=== PATIENT | female | born 1990 | race Caucasian/White ===

== ENCOUNTER 2019-04-02 08:14 | Inpatient (IN) | payer BC ==
[2019-04-02] MEDS ORDERED: Ondansetron 4 MG/2 ML SDV IVPUSH PRN (19:29)
[2019-04-02] MEDS ORDERED: Nalbuphine 10 MG/1 ML Vial IVPUSH PRN (19:29)
[2019-04-02] MEDS ORDERED: Sodium Chloride 0.9% 10 ML Syringe FLUSH PRN (19:29)
[2019-04-02] MEDS ORDERED: Lidocaine 1% 50 ML MDV INJECT ONE (19:29)
--- NOTE | 2019-04-02 19:56 | PCM.LDHP ---
L&D History of Present Illness - General Date of Service: 04/02/19 Admit Problem/Dx: Patient Status Order with Admit Dx/Problem 04/02/19 19:30 Patient Status [ADT] Routine Admission Diagnosis/Problem Admission Diagnosis/Problem 39 weeks gestation of Source of Information: Patient History Limitations: Reports: No Limitations - History of Present Illness Introduction:: 28year old with mild preeclampsia, admitted for induction of labor. WE first noticed increased bp at the 37 week visit. Her bp has been running in the 140's/80's, but urine protein to creatinine ratio has been >0.3. PIH labs have been wnl, except slight decrease in platelets at last visit. WE have been doing BPP and they have been normal. EFW on last ultrasound on 03/31/19 was 7 lb 9 oz with ALEC 10.8 on 03/31/19. GBS is negative and 1 hour glucola wnl. Her blood type is Apos. Infection testing has been negative except for Bacterial vaginosis. Her labs did show a significant hypokalemia and we have started her on oral liquid potassium supplement since she is not able to swallow pills. She does also have hypothyroidism and is on levothyroxine. - Related Data Allergies/Adverse Reactions: Allergies Allergy/AdvReac Type Severity Reaction Status Date / Time Penicillins Allergy Hives Verified 04/02/19 19:57 seafood Allergy Other Uncoded 04/02/19 19:57 Home Medications: Home Meds Levothyroxine [Synthroid] 50 mcg PO ACBREAKFAST 04/02/19 [History] Potassium Chloride 30 ml PO BID 04/02/19 [History] Social & Family History - Tobacco Use Smoking Status *Q: Never Smoker Tobacco Use Within Last Twelve Months: No - Alcohol Use Alcohol Use History: No Alcohol Use in Last Twelve Months: No - Recreational Drug Use Recreational Drug Use: No Drug Use in Last 12 Months: No - Living Situation & Occupation Living situation: Reports: Occupation: Employed H&P Review of Systems - Review of Systems: Review Of Systems: See Below General: Reports: No Symptoms HEENT: Reports: No Symptoms Pulmonary: Reports: No Symptoms Cardiovascular: Reports: Edema Gastrointestinal: Reports: No Symptoms Genitourinary: Reports: No Symptoms Musculoskeletal: Reports: No Symptoms Skin: Reports: No Symptoms Psychiatric: Reports: No Symptoms Neurological: Reports: No Symptoms Hematologic/Lymphatic: Reports: No Symptoms Immunologic: Reports: No Symptoms L&D Exam - Exam Exam: See Below - OB Specific Contraction Frequency (min): occasional contraction Contraction Intensity: Patient does not feel the contraction Movement: Active Heart Tones: Present Heart Tones per Min: 130 Heart Rate (FHR) Variability: Moderate (6-25 bmp) Presentation: Vertex Estimated Weight: 7 lb 9 oz - Lou Score Lou Score Cervix Position: Anterior Lou Score Consistency: Firm Lou Score Effacement: 0-30% Lou Score Dilation: Closed Lou Score 's Station: -3 Lou Score Total: 2 - Exam General: Alert, Oriented HEENT: Mucosa Moist & [place] Neck: Supple, Trachea Midline Lungs: Normal Respiratory Effort Cardiovascular: Regular Rate, Regular Rhythm GI/Abdominal Exam: Normal Bowel Sounds Rectal Exam: Deferred Genitourinary: Normal external exam Back Exam: Normal Inspection, Full Range of Motion Extremities: Pedal Edema Skin: Warm, Dry, Intact Neurological: Cranial Nerves Intact Psychiatric: Alert, Normal Affect, Normal Mood - Problem List (1) Pre-eclampsia affecting , antepartum SNOMED Code(s): 955196891, 527922142 ICD Code: O14.90 - UNSPECIFIED PRE-ECLAMPSIA, UNSPECIFIED TRIMESTER Status : Acute Current Visit: Yes (2) 39 weeks gestation of SNOMED Code(s): 80053798 ICD Code: Z3A.39 - 39 WEEKS GESTATION OF Status: Acute Current Visit: Yes (3) Hypokalemia SNOMED Code(s): 93816745 ICD Code: E87.6 - HYPOKALEMIA Status: Acute Current Visit: Yes (4) Hypothyroidism SNOMED Code(s): 20086899 ICD Code: E03.9 - HYPOTHYROIDISM, UNSPECIFIED Status: Acute Current Visit : Yes Qualifiers: Hypothyroidism type: acquired Qualified Code(s): E03.9 - Hypothyroidism, unspecified Problem List Initiated/Reviewed/Updated: Yes Orders Last 24hrs: Active Orders 24 hr Category Date Time Status Patient Status [ADT] Routine ADT 04/02/19 19:30 Ordered Activity as Tolerated [RC] PFP Care 04/02/19 19:30 Ordered Communication Order [RC] ASDIRECTED Care 04/02/19 19:30 Ordered Heart Tones [RC] ASDIRECTED Care 04/02/19 19:32 Ordered Non Stress Test [RC] PER UNIT ROUTINE Care 04/02/19 19:30 Ordered Notify Provider [RC] PFP Care 04/02/19 19:30 Ordered Notify Provider [RC] PRN Care 04/02/19 19:30 Ordered Peripheral IV Care [RC] . DIRECTED Care 04/02/19 19:32 Ordered Vital Signs [RC] PER UNIT ROUTINE Care 04/02/19 19:30 Ordered Regular Diet [DIET] Diet 04/02/19 Dinner Ordered ALANINE AMINOTRANSFERASE,ALT [CHEM] Stat Lab 04/02/19 19:39 Ordered ASPARTATE AMNIOTRANSFERASE,AST [CHEM] Stat Lab 04/02/19 19:39 Ordered BLOOD UREA NITROGEN,BUN [CHEM] Stat Lab 04/02/19 19:39 Ordered CBC WITH AUTO DIFF [HEME] Stat Lab 04/02/19 19:39 Ordered CREATININE W/GFR [CHEM] Stat Lab 04/02/19 19:39 Ordered LACTATE DEHYDROGENASE,LDH [CHEM] Stat Lab 04/02/19 19:39 Ordered PROTEIN/CREATININE RATIO,URINE [URCHEM] Routine Lab 04/02/19 19:43 Ordered RAPID PLASMA REAGIN,RPR [CHEM] Routine Lab 04/02/19 19:30 Ordered TYPE AND SCREEN [BBK] Stat Lab 04/02/19 19:29 Ordered URIC ACID [CHEM] Stat Lab 04/02/19 19:39 Ordered Lactated Ringers [Ringers, Lactated] 1,000 ml Med 04/02/19 19:30 Ordered IV ASDIRECTED Lidocaine 1% [Xylocaine 1%] Med 04/02/19 19:29 Once 20 ml INJECT ONETIME ONE Nalbuphine [Nubain] Med 04/02/19 19:29 Ordered 10 mg IVPUSH Q2H PRN Ondansetron [Zofran] Med 04/02/19 19:29 Ordered 4 mg IVPUSH Q4H PRN Sodium Chloride 0.9% [Saline Flush] Med 04/02/19 19:29 Ordered 10 ml FLUSH ASDIRECTED PRN miSOPROStol [Cytotec] Med 04/02/19 22:00 Once 25 mcg VAG ONETIME ONE Electronic Heart Tones Ext w TOCO [WOMSER] Oth 04/02/19 19:30 Ordered Routine Electronic Heart Tones Internal [WOMSER] Per Unit Oth 04/02/19 19:30 Ordered Routine PIH Panel [OM.PC] Stat Oth 04/02/19 19:29 Ordered Peripheral IV Insertion Adult [OM.PC] Routine Oth 04/02/19 19:30 Ordered Resuscitation Status Routine Resus Stat 04/02/19 19:29 Ordered Medication Orders Lactated Ringer's (Ringers, Lactated) 1,000 mls @ 100 mls/hr IV ASDIRECTED ISELA Lidocaine HCl (Xylocaine 1%) 20 ml INJECT ONETIME ONE Stop: 04/02/19 19:30 Misoprostol (Cytotec) 25 mcg VAG ONETIME ONE Stop: 04/02/19 22:01 Nalbuphine HCl (Nubain) 10 mg IVPUSH Q2H PRN PRN Reason: Pain Ondansetron HCl (Zofran) 4 mg IVPUSH Q4H PRN PRN Reason: Nausea/Vomiting Sodium Chloride (Saline Flush) 10 ml FLUSH ASDIRECTED PRN PRN Reason: Keep Vein Open Assessment/Plan Comment:: 28 year old primip at 39 +3 weeks gestation with mild preeclampsia admitted for induction of labor. Patient has peripheral edema in legs and hands, proteinuria and bp in the 140/80 range. PIH labs have been stable except for slight decrease in platelets. She denies headache, nausea, RUQ pain. Cervix is fingertip, firm, station -3 and ballotable. Plan : Cytotec vaginal for cervical ripening and induction. Once cervix is favorable, will plan to start pitocin induction. Monitor bp and treat with IV labetalol if it becomes uncontrolled. PIH labs on admit.
[2019-04-02] MEDS ORDERED: Misoprostol 25 MCG (1/4 of 100 MCG) Tab VAG ONE (22:00)
[2019-04-03] MEDS: Lactated Ringers 1,000 ML IV SCH ×5 (04:42→20:43)
[2019-04-03] MEDS: Misoprostol 25 MCG (1/4 of 100 MCG) Tab VAG SCH ×2 (04:43→08:53)
[2019-04-03] MEDS ORDERED: FLU Vacc QS2019-20(6MOS+)/PF 60 MCG/0.5 ML SYRINGE IM ONE (08:00)
--- NOTE | 2019-04-03 08:10 | PCM.PNLD ---
Labor Progress Note - VS & Meds Vital Signs: Last Vital Signs Temp Pulse 81 04/02/19 19:30 Resp 16 04/02/19 19:30 BP 141/81 H 04/02/19 19:30 Pulse Ox 87 L 04/02/19 19:30 Active Medications: Current Medications Lactated Ringer's (Ringers, Lactated) 1,000 mls @ 100 mls/hr IV ASDIRECTED ISELA Last Admin: 04/03/19 04:42 Dose: 100 mls/hr Levothyroxine Sodium (Synthroid) 50 mcg PO ACBREAKFAST [facility] Misoprostol (Cytotec) 25 mcg VAG Q4H ISELA Stop: 04/03/19 08:31 Last Admin: 04/03/19 04:43 Dose: 25 mcg Nalbuphine HCl (Nubain) 10 mg IVPUSH Q2H PRN PRN Reason: Pain Ondansetron HCl (Zofran) 4 mg IVPUSH Q4H PRN PRN Reason: Nausea/Vomiting Potassium Chloride (Potassium Chloride Solution) 20 meq PO BID [facility] Sodium Chloride (Saline Flush) 10 ml FLUSH ASDIRECTED PRN PRN Reason: Keep Vein Open Discontinued Medications Influenza Virus Vaccine (Pharmacy To Dose - Influenza Vaccine) 1 each IM ONETIME ONE Stop: 04/03/19 07:49 Influenza Virus Vaccine (Fluzone Quad [id number] Syringe) 60 mcg IM .ONCE ONE Stop: 04/03/19 08:01 Lidocaine HCl (Xylocaine 1%) 20 ml INJECT ONETIME ONE Stop: 04/02/19 19:30 Misoprostol (Cytotec) 25 mcg VAG ONETIME ONE Stop: 04/02/19 22:01 Last Admin: 04/03/19 00:15 Dose: 25 mcg - Uterine Contractions Uterine Monitoring Mode: External [place] Contraction Frequency (min): 2-5 Contraction Intensity: Irritability Uterine Resting Tone: Soft - Monitoring Monitor Mode: External Ultrasound Heart Rate (FHR) Baseline: 125 Heart Rate (FHR) Variability: Moderate (6-25 bmp) Accelerations: Present, 15x15 Decelerations: None Strip Review: Category I - Vaginal Exam Dilation (cm): 1 Effacement (Percent): 25 Station: -3 Cervical Position: Anterior Sterile Vaginal Exam Performed By: Kasandra Garzon - Labor Progress (Free Text) Labor Progress: Patient has received 2 doses of cytotec, next dose due at 0830. The monitor is showing irritability pattern with tightenings that are irregular, every 2 to 5 minutes. The patient is not feeling them. BP has been normotensive. PIH labs are wnl. Urine protein to creatinine ratio is 0.2. Cervix this am is 1 cm, a bit softer and I am able to get to the vertex. Effacement about 25%, station - 3. A/P: Some ripening of the cervix with slight dilation. Will plan to place the third dose of cytotec and then reevaluate in 4 hours and probably start pitocin at that time. AROM when appropriate to further augment labor. Preeclampsia - bp readings have been normotensive. Will continue to monitor closely.
[2019-04-03] MEDS: Levothyroxine 50 MCG Tab PO SCH (08:53)
[2019-04-03] MEDS: Potassium Chloride 10% 20 MEQ/15 ML Soln 15 ML UD Cup PO SCH (08:53)
[2019-04-03] MEDS ORDERED: Ondansetron 4 MG/2 ML SDV IVPUSH PRN (09:09)
[2019-04-03] MEDS ORDERED: fentaNYL 100 MCG/2 ML SDV EPIDUR PRN (09:09)
[2019-04-03] MEDS ORDERED: fentaNYL/Bupivacaine in NS PF 2 MCG-0.125% 250 ML Premix EPIDUR PRN (09:09)
[2019-04-03] MEDS ORDERED: ePHEDrine 50 MG/ML SDV IVPUSH PRN (09:09)
--- NOTE | 2019-04-03 09:16 | PCM.PREANE ---
Preanesthetic Assessment - Anesthesia/Transfusion/Family Hx Anesthesia History: No Prior Anesthesia Family History of Anesthesia Reaction: No Transfusion History: No Prior Transfusion(s) Intubation History: Unknown - Review of Systems General: No Symptoms Pulmonary: No Symptoms Cardiovascular: No Symptoms (pre-eclampsia) Gastrointestinal: No Symptoms (GERD) Neurological: No Symptoms, Headache Other: Reports: None, Thyroid Problems (hypothyroid) - Physical Assessment NPO Status Date: 04/03/19 NPO Status Time: 13:00 Vital Signs: Last Vital Signs Temp Pulse 81 04/02/19 19:30 Resp 16 04/02/19 19:30 BP 141/81 H 04/02/19 19:30 Pulse Ox 87 L 04/02/19 19:30 Temp: Height: 1.7 m Weight: 82.554 kg ASA Class: 2 Mental Status: Alert & Oriented x3 Airway Class: Mallampati = 2 Dentition: Reports: Normal Dentition, Caries Thyro-Mental Finger Breadths: 3 Mouth Opening Finger Breadths: 3 ROM/Head Extension: Full Lungs: Clear to Auscultation, Normal Respiratory Effort Cardiovascular: Regular Rate, Regular Rhythm, No Murmurs - Lab Values: Laboratory Last Values WBC 11.22 K/mm3 (3.98-10.04) H 04/02/19 20:03 RBC 3.50 M/mm3 (3.98-5.22) L 04/02/19 20:03 Hgb 10.8 gm/dl (11.2-15.7) L 04/02/19 20:03 Hct 32.1 % (34.1-44.9) L 04/02/19 20:03 MCV 91.7 fl (79.4-94.8) 04/02/19 20:03 MCH 30.9 pg (25.6-32.2) 04/02/19 20:03 MCHC 33.6 g/dl (32.2-35.5) 04/02/19 20:03 RDW Std Deviation 42.8 fL (36.4-46.3) 04/02/19 20:03 Plt Count 192 K/mm3 (182-369) 04/02/19 20:03 MPV 10.6 fl (9.4-12.3) 04/02/19 20:03 Neut % (Auto) 76.0 % (34.0-71.1) H 04/02/19 20:03 Lymph % (Auto) 16.5 % (19.3-51.7) L 04/02/19 20:03 [place] % (Auto) 5.9 % (4.7-12.5) 04/02/19 20:03 Eos % (Auto) 0.7 (0.7-5.8) 04/02/19 20:03 Baso % (Auto) 0.1 % (0.1-1.2) 04/02/19 20:03 Neut # (Auto) 8.53 K/mm3 (1.56-6.13) H 04/02/19 20:03 Lymph # (Auto) 1.85 K/mm3 (1.18-3.74) 04/02/19 20:03 [place] # (Auto) 0.66 K/mm3 (0.24-0.36) H 04/02/19 20:03 Eos # (Auto) 0.08 K/mm3 (0.04-0.36) 04/02/19 20:03 Baso # (Auto) 0.01 K/mm3 (0.01-0.08) 04/02/19 20:03 BUN 4 mg/dL (7-18) L 04/02/19 20:03 Creatinine 0.6 mg/dL (0.55-1.02) 04/02/19 20:03 Est Cr Clr Drug Dosing TNP 04/02/19 20:03 Estimated GFR (MDRD) > 60 mL/min (>60) 04/02/19 20:03 Uric Acid 3.3 mg/dL (2.6-6.0) 04/02/19 20:03 AST 12 U/L (15-37) L 04/02/19 20:03 ALT 16 U/L (14-59) 04/02/19 20:03 Lactate Dehydrogenase 159 U/L (81-234) 04/02/19 20:03 Ur Random Creatinine 57.8 mg/dL (30.0-125.0) 04/03/19 01:15 U Random Total Protein 13.4 mg/dL (0.0-11.8) H 04/03/19 01:15 Protein/Creatinin Ratio 231.8 mg/g (0-149) H 04/03/19 01:15 RPR Non-reactive (NONREACTIVE) 04/02/19 20:03 Blood Type A POSITIVE 04/02/19 20:03 Gel Antibody Screen Negative 04/02/19 20:03 Above labs reviewed and noted and within acceptable ranges to proceed with epidural if desired. - Allergies Allergies/Adverse Reactions: Allergies Allergy/AdvReac Type Severity Reaction Status Date / Time Penicillins Allergy Hives Verified 04/02/19 21:10 seafood Allergy Other Uncoded 04/02/19 21:10 - Anesthesia Plan Pre-Op Medication Ordered: None - Acknowledgements Anesthesia Type Planned: Epidural Pt an Appropriate Candidate for the Planned Anesthesia: Yes Alternatives and Risks of Anesthesia Discussed w Pt/Guardian: Yes Pt/Guardian Understands and Agrees with Anesthesia Plan: Yes PreAnesthesia Questionnaire - Past Health History Medical/Surgical History: Denies Medical/Surgical History HEENT History: Reports: Other (See Below) Other HEENT History: wears glasses [employer] History: Reports: Neurological History: Reports: Migraines Endocrine/Metabolic History: Reports: Hypothyroidism - SUBSTANCE USE Smoking Status *Q: Never Smoker Tobacco Use Within Last Twelve Months: No Recreational Drug Use History: No - HOME MEDS Home Medications: Home Meds Levothyroxine [Synthroid] 50 mcg PO ACBREAKFAST 04/02/19 [History] Potassium Chloride 30 ml PO BID 04/02/19 [History] - CURRENT (IN HOUSE) MEDS Current Meds: Current Medications Ephedrine Sulfate (Ephedrine Sulfate) 5 mg IVPUSH ASDIRECTED PRN PRN Reason: Hypotension Fentanyl (Sublimaze) 100 mcg EPIDUR Q3H PRN PRN Reason: Pain Fentanyl/Bupivacaine HCl (Fentanyl/Bupivacaine/Ns 2 Mcg-0.125% 250 Ml) 2 mcg EPIDUR CONTINUOUS PRN PRN Reason: Pain Lactated Ringer's (Ringers, Lactated) 1,000 mls @ 100 mls/hr IV ASDIRECTED ISELA Last Admin: 04/03/19 04:42 Dose: 100 mls/hr Levothyroxine Sodium (Synthroid) 50 mcg PO ACBREAKFAST ISELA Last Admin: 04/03/19 08:53 Dose: 50 mcg Nalbuphine HCl (Nubain) 10 mg IVPUSH Q2H PRN PRN Reason: Pain Ondansetron HCl (Zofran) 4 mg IVPUSH Q4H PRN PRN Reason: Nausea/Vomiting Ondansetron HCl (Zofran) 4 mg IVPUSH ONETIME PRN PRN Reason: Nausea/Vomiting Potassium Chloride (Potassium Chloride Solution) 20 meq PO BID [facility] Last Admin: 04/03/19 08:53 Dose: 20 meq Sodium Chloride (Saline Flush) 10 ml FLUSH ASDIRECTED PRN PRN Reason: Keep Vein Open Discontinued Medications Influenza Virus Vaccine (Pharmacy To Dose - Influenza Vaccine) 1 each IM ONETIME ONE Stop: 04/03/19 07:49 Influenza Virus Vaccine (Fluzone Quad [id number] Syringe) 60 mcg IM .ONCE ONE Stop: 04/03/19 08:01 Lidocaine HCl (Xylocaine 1%) 20 ml INJECT ONETIME ONE Stop: 04/02/19 19:30 Misoprostol (Cytotec) 25 mcg VAG ONETIME ONE Stop: 04/02/19 22:01 Last Admin: 04/03/19 00:15 Dose: 25 mcg Misoprostol (Cytotec) 25 mcg VAG Q4H ISELA Stop: 04/03/19 08:31 Last Admin: 04/03/19 08:53 Dose: 25 mcg
[2019-04-03] MEDS ORDERED: Oxytocin/Lactated Ringers 10 UNIT/1,000 ML BAG IV SCH (13:15)
--- NOTE | 2019-04-03 18:16 | PCM.PNLD ---
Labor Progress Note - VS & Meds Vital Signs: Last Vital Signs Temp Pulse 81 04/02/19 19:30 Resp 16 04/02/19 19:30 BP 141/81 H 04/02/19 19:30 Pulse Ox 87 L 04/02/19 19:30 Active Medications: Current Medications Ephedrine Sulfate (Ephedrine Sulfate) 5 mg IVPUSH ASDIRECTED PRN PRN Reason: Hypotension Fentanyl (Sublimaze) 100 mcg EPIDUR Q3H PRN PRN Reason: Pain Fentanyl/Bupivacaine HCl (Fentanyl/Bupivacaine/Ns 2 Mcg-0.125% 250 Ml) 2 mcg EPIDUR CONTINUOUS PRN PRN Reason: Pain Lactated Ringer's (Ringers, Lactated) 1,000 mls @ 100 mls/hr IV ASDIRECTED [facility] Last Admin: 04/03/19 17:31 Dose: 100 mls/hr Oxytocin/Lactated Ringer's (Pitocin In Lr 10 Units/1,000 Ml) 10 unit in 1,000 mls @ 12 mls/hr IV TITRATE [facility]; Protocol Last Titration: 04/03/19 17:31 Dose: 5 munits/min, 30 mls/hr Levothyroxine Sodium (Synthroid) 50 mcg PO ACBREAKFAST [facility] Last Admin: 04/03/19 08:53 Dose: 50 mcg Nalbuphine HCl (Nubain) 10 mg IVPUSH Q2H PRN PRN Reason: Pain Ondansetron HCl (Zofran) 4 mg IVPUSH Q4H PRN PRN Reason: Nausea/Vomiting Ondansetron HCl (Zofran) 4 mg IVPUSH ONETIME PRN PRN Reason: Nausea/Vomiting Potassium Chloride (Potassium Chloride Solution) 20 meq PO BID [facility] Last Admin: 04/03/19 08:53 Dose: 20 meq Sodium Chloride (Saline Flush) 10 ml FLUSH ASDIRECTED PRN PRN Reason: Keep Vein Open Discontinued Medications Influenza Virus Vaccine (Pharmacy To Dose - Influenza Vaccine) 1 each IM ONETIME ONE Stop: 04/03/19 07:49 Influenza Virus Vaccine (Fluzone Quad [id number] Syringe) 60 mcg IM .ONCE ONE Stop: 04/03/19 08:01 Lidocaine HCl (Xylocaine 1%) 20 ml INJECT ONETIME ONE Stop: 04/02/19 19:30 Misoprostol (Cytotec) 25 mcg VAG ONETIME ONE Stop: 04/02/19 22:01 Last Admin: 04/03/19 00:15 Dose: 25 mcg Misoprostol (Cytotec) 25 mcg VAG Q4H ISELA Stop: 04/03/19 08:31 Last Admin: 04/03/19 08:53 Dose: 25 mcg - Uterine Contractions Uterine Monitoring Mode: External [place] Contraction Frequency (min): 1.5 to 2 Contraction Duration (sec): 60 Contraction Intensity: Moderate Uterine Resting Tone: Soft - Monitoring Monitor Mode: External Ultrasound Heart Rate (FHR) Baseline: 130 Heart Rate (FHR) Variability: Minimal (0-5 bpm) Accelerations: Present, 15x15 Decelerations: None Strip Review: Category II - Vaginal Exam Dilation (cm): 1 Effacement (Percent): 50 Station: -3 Cervical Position: Anterior Sterile Vaginal Exam Performed By: Kasandra Garzon (medium consistency) Vaginal Exam Comment: AROM performed for moderate amount of clear fluid at 1800 - Labor Progress (Free Text) Labor Progress: Patient is having regular contractions. Pitocin was started per protocol at 1300. She had tachysystole at one point and variability decreased to minimal but no decelerations. Pitocin dose was reduced from 6mu/min to 3mu/min and then variability returned to moderate with accelerations. We have slowly increased the pitocin, currently at 5 mu/min and contractions are every 2 to 3 minutes, lasting 60 seconds and moderate to palpation. Patient is feeling these contractions but does not have to breathe through them. She will have intermittent episodes of minimal variability, that seem to respond to position change and has had fluid bolus. SHe has had 2 litres of IV fluid since pitocin was started at 1300. Her bp has been in the normotensive range. Cervix is 1 cm, 50%, moderate consistency and anterior. Station -3. AROM performed at about 1800 for moderate amount of clear fluid. A/P: latent phase of labor. Continue increasing pitocin until having strong regular contractions with cervical change as baby tolerates. Continue regular position changes, encourage her to ambulate. Consider IUPC to better monitor strength of contractions. Mild preeclampsia - monitor bp regularly - readings have been normotensive thus far.
[2019-04-04] MEDS ORDERED: Bupivacaine 0.25% 10 ML SDV ONE
[2019-04-04] MEDS: Lactated Ringers 1,000 ML IV SCH ×2 (00:59→04:08)
[2019-04-04] MEDS ORDERED: Witch Hazel Medicated Pads 40/Jar TOP PRN (09:07)
[2019-04-04] MEDS ORDERED: Benzocaine/Menthol 20%-0.5% Spray 56 GM Canister TOP PRN (09:07)
[2019-04-04] MEDS ORDERED: Acetaminophen 325 MG Tab PO PRN (09:07)
[2019-04-04] MEDS ORDERED: Simethicone 80 MG Tab.Chew PO PRN (09:07)
[2019-04-04] MEDS: Ibuprofen 600 MG Tab PO PRN (09:19)
[2019-04-04] MEDS: Docusate Sodium 100 MG Cap PO PRN (09:20)
--- NOTE | 2019-04-04 09:35 | PCM.DEL ---
L & D Note - General Info Date of Service: 04/04/19 Mother's Due Date: 04/06/19 - Delivery Note Labor: Induced by Oxytocin Cervical Ripening Method: Misoprostil, Oxytocin Delivery Outcome: Livebirth Delivery Method: Spontaneous Vaginal Delivery-Single Infant Delivery Mode: Spontaneous Presentation: Vertex Nuchal Cord: Present (1 loop, loose), Reduced Prep: Povidone-Iodine (Betadine Anesthesia Type: Epidural Amniotic Fluid Description: Clear Episiotomy Type: None Laceration: 2nd Degree Suture type: Vicryl Suture size: 3-0 Placenta: Intact, Spontaneous Cord: 3 Vessels Estimated Blood Loss: 200 Resuscitation Needed: Yes : Suctioned, Stimulated, Warmer Used (NRP protocol - PPV and chest compressions. PPV for about 1 minute then blow by oxygen) Provider: Kasandra Garzon Score 1 min: 1 Score 5 min: 5 Score 10 min: 9 Delivery Comments (Free Text/Narrative):: 28year old with mild preeclampsia, admitted for induction of labor. WE first noticed increased bp at the 37 week visit. Her bp has been running in the 140's/80's, but urine protein to creatinine ratio has been >0.3. PIH labs have been wnl, except slight decrease in platelets at last visit. WE have been doing BPP and they have been normal. EFW on last ultrasound on 03/31/19 was 7 lb 9 oz with ALEC 10.8 on 03/31/19. GBS is negative and 1 hour glucola wnl. Her blood type is Apos. Infection testing has been negative except for Bacterial vaginosis. Her labs did show a significant hypokalemia and we have started her on oral liquid potassium supplement since she is not able to swallow pills. She does also have hypothyroidism and is on levothyroxine. She was given a total of 3 doses of vaginal cytotec 25 mcg, starting at 0015 on 04/03/19. Pitocin was started on 04/03/19 at 0100 and then AROM to augment at 1753 on 04/03/19. Strip was category II with intermittent minimal variability and some variable decelerations. There were late decels at one point that responded to decreasing pitocin dose and position changes. At the time of AROM , she was 1 cm dilated, 50% effaced and station -3. She started feeling her contractions shortly after that and had an epidural placed about 1900 and was comfortable with that. Her bp readings have been in the normotensive range throughout labor. She did start running a low grade temp early this am and temp was 101 temporal in second stage. She was complete by 0700 and she started pushing shortly after. She did well with pushing. FHR did decel with pushing, but recovered to 130-140. Baby was for 3 minutes and not picking up FHR at that time. Time of delivery was 0814 from MICHAEL position. It was a baby boy. There was nuchal cord x 1 that was loose and easily reduced. Baby was blue, limp and not breathing. The cord was clamped and cut and baby brought to [facility]. PPV was started and HR was <60 so chest compressions were started and continued for about 20 seconds and then HR was >60 and increasing and baby was starting to pink up. PPV was continued for about 1 minute and then blow by oxygen provided. Tone was still poor, but gradually increased with stimulation. Apgars were 1, 5 and 9 and 1, 5 and 10 minutes respectively. Oxygen saturation was 95% at about 10 minutes of age. Delee suction performed and 1 ml of clear fluid obtained. Baby transitioned on the Panda. Placenta delivered spontaneously at 0824 and there were 3 vessels in the cord and placenta was intact. There was a second degree laceration that was repaired in the usual manner. EBL was 200 ml. Bladder was catheterized after the tear was repaired and a large amount of urine drained. Fundus was firm by palpation and 3 fingers below U. Bleeding was minimal. Baby was brought to Mom , placed skin to skin and latched at the breast. Both Mom and baby were left in the delivery room in stable condition. Induction Criteria - Lou Score Lou Score Dilation: Closed Lou Score Effacement: 0-30% Lou Score Infant's Station: -3 Lou Score Consistency: Firm Lou Score Cervix Position: Anterior Lou Score Total: 2 Lou Score Presenting Part: Reports: Cephalic - Induction Gestational Age >/= 39 wks: Yes Medical Indication: Preeclampsia Estimated Pelvis: Reports: Adequate Reassuring Monitoring Strip: Yes Absence of Tachy Systole: Yes - Augmentation Estimated Pelvis: Reports: Adequate Weight Estimated:: Reports: AGA Reassuring Monitoring Strip: Yes Absence of Tachy Systole: Yes - General Info Date of Service: 04/04/19 Admission Dx/Problem (Free Text): Patient Status Order with Admit Dx/Problem 04/02/19 19:30 Patient Status [ADT] Routine Admission Diagnosis/Problem Admission Diagnosis/Problem 39 weeks gestation of Functional Status: Reports: Pain Controlled - Review of Systems General: Reports: Fever HEENT: Reports: No Symptoms Pulmonary: Reports: No Symptoms Cardiovascular: Reports: No Symptoms Gastrointestinal: Reports: Vomiting Genitourinary: Reports: No Symptoms Musculoskeletal: Reports: No Symptoms Skin: Reports: No Symptoms Neurological: Reports: No Symptoms Psychiatric: Reports: No Symptoms - Patient Data Vitals - Most Recent: Last Vital Signs Temp Pulse 81 04/02/19 19:30 Resp 16 04/02/19 19:30 BP 141/81 H 04/02/19 19:30 Pulse Ox 87 L 04/02/19 19:30 Weight - Most Recent: 82.554 kg I&O - Last 24 Hours: Intake & Output 04/03/19 04/04/19 04/04/19 22:59 06:59 14:59 Intake Total 120 Balance 120 Med Orders - Current: Current Medications Acetaminophen (Tylenol) 650 mg PO Q4H PRN PRN Reason: mild pain or fever Benzocaine/Menthol (Dermoplast Pain Relief [place]) 0 gm TOP ASDIRECTED PRN PRN Reason: Perineal Comfort Measure Docusate Sodium (Colace) 100 mg PO BID PRN PRN Reason: Constipation Ibuprofen (Motrin) 600 mg PO Q4H PRN PRN Reason: Mild pain or fever Levothyroxine Sodium (Synthroid) 50 mcg PO ACBREAKFAST [facility] Last Admin: 04/03/19 08:53 Dose: 50 mcg Potassium Chloride (Potassium Chloride Solution) 20 meq PO BID [facility] Last Admin: 04/03/19 08:53 Dose: 20 meq Prenat Multivit/[place]/Iron/Folic Ac ( Plus Iron) 1 each PO DAILY [facility] Simethicone (Simethicone) 80 mg PO Q4H PRN PRN Reason: Gas Witch [place]ced[place] (Tucks) 1 pad TOP ASDIRECTED PRN PRN Reason: Perineal Comfort Measure Discontinued Medications Ephedrine Sulfate (Ephedrine Sulfate) 5 mg IVPUSH ASDIRECTED PRN PRN Reason: Hypotension Fentanyl (Sublimaze) 100 mcg EPIDUR Q3H PRN PRN Reason: Pain Last Admin: 04/03/19 19:00 Dose: 100 mcg Fentanyl/Bupivacaine HCl (Fentanyl/Bupivacaine/Ns 2 Mcg-0.125% 250 Ml) 2 mcg EPIDUR CONTINUOUS PRN PRN Reason: Pain Last Admin: 04/03/19 19:00 Dose: 2 mcg Lactated Ringer's (Ringers, Lactated) 1,000 mls @ 100 mls/hr IV ASDIRECTED ISELA Last Admin: 04/04/19 04:08 Dose: 100 mls/hr Oxytocin/Lactated Ringer's (Pitocin In Lr 10 Units/1,000 Ml) 10 unit in 1,000 mls @ 12 mls/hr IV TITRATE ISELA; Protocol Last Titration: 04/04/19 01:07 Dose: 6 munits/min, 36 mls/hr Influenza Virus Vaccine (Pharmacy To Dose - Influenza Vaccine) 1 each IM ONETIME ONE Stop: 04/03/19 07:49 Influenza Virus Vaccine (Fluzone Quad Syringe) 60 mcg IM .ONCE ONE Stop: 04/03/19 08:01 Lidocaine HCl (Xylocaine 1%) 20 ml INJECT ONETIME ONE Stop: 04/02/19 19:30 Misoprostol (Cytotec) 25 mcg VAG ONETIME ONE Stop: 04/02/19 22:01 Last Admin: 04/03/19 00:15 Dose: 25 mcg Misoprostol (Cytotec) 25 mcg VAG Q4H ISELA Stop: 04/03/19 08:31 Last Admin: 04/03/19 08:53 Dose: 25 mcg Nalbuphine HCl (Nubain) 10 mg IVPUSH Q2H PRN PRN Reason: Pain Ondansetron HCl (Zofran) 4 mg IVPUSH Q4H PRN PRN Reason: Nausea/Vomiting Ondansetron HCl (Zofran) 4 mg IVPUSH ONETIME PRN PRN Reason: Nausea/Vomiting Sodium Chloride (Saline Flush) 10 ml FLUSH ASDIRECTED PRN PRN Reason: Keep Vein Open - Exam General: Alert, Oriented, Cooperative, No Acute Distress HEENT: Pupils Equal, Mucous Membr. Moist/[place] Neck: Supple Lungs: Normal Respiratory Effort Cardiovascular: Regular Rate, Regular Rhythm GI/Abdominal Exam: Normal Bowel Sounds, Soft (Female) Exam: Vaginal Bleeding, Vaginal Tears Back Exam: Normal Inspection, Full Range of Motion Extremities: Pedal Edema Skin: Warm, Dry, Intact Neurological: No New Focal Deficit Psy/Mental Status: Alert - Problem List & Annotations (1) Pre-eclampsia affecting , antepartum SNOMED Code(s): 673221410, 003397200 Code(s): O14.90 - UNSPECIFIED PRE-ECLAMPSIA, UNSPECIFIED TRIMESTER Status: Acute Current Visit: Yes (2) 39 weeks gestation of SNOMED Code(s): 77914202 Code(s): Z3A.39 - 39 WEEKS GESTATION OF Status: Acute Current Visit: Yes (3) Hypokalemia SNOMED Code(s): 81970405 Code(s): E87.6 - HYPOKALEMIA Status: Acute Current Visit: Yes (4) Hypothyroidism SNOMED Code(s): 96744034 Code(s): E03.9 - HYPOTHYROIDISM, UNSPECIFIED Status: Acute Current Visit : Yes Qualifiers: Hypothyroidism type: acquired Qualified Code(s): E03.9 - Hypothyroidism, unspecified (5) Normal spontaneous vaginal delivery SNOMED Code(s): 63822999, 547159703 Code(s): O80 - ENCOUNTER FOR FULL-TERM UNCOMPLICATED DELIVERY Status: Acute Current Visit: Yes - Problem List Review Problem List Initiated/Reviewed/Updated: Yes - My Orders Last 24 Hours: My Active Orders 04/03/19 09:00 Potassium Chloride [Potassium Chloride Solution] 20 meq PO BID 04/04/19 09:07 Patient Status [ADT] Routine Activity as Tolerated [RC] PER UNIT ROUTINE May Shower [RC] ASDIRECTED Notify Provider Vital Signs [RC] ASDIRECTED Up ad Raysa [RC] ASDIRECTED Vital Signs [RC] ASDIRECTED Acetaminophen [Tylenol] 650 mg PO Q4H PRN Benzocaine/Menthol [Dermoplast Pain Relief [place]] See Dose Instructions TOP ASDIRECTED PRN Docusate Sodium [Colace] 100 mg PO BID PRN Ibuprofen [Motrin] 600 mg PO Q4H PRN Vit with Ca/FA/Iron [ Plus Iron] 1 each PO DAILY Simethicone 80 mg PO Q4H PRN Witch [place] [Tucks] 1 pad TOP ASDIRECTED PRN Assess Lochia [WOMSER] Per Unit Routine Assess Uterine Involution [WOMSER] Per Unit Routine Breast Pump [WOMSER] Per Unit Routine Heat Therapy [OM.PC] PRN Medication Administration Instruction [OM.PC] Routine Perineal Care [OM.PC] Per Unit Routine Peripheral IV Discontinue [OM.PC] Routine Sitz Bath [OM.PC] Per Unit Routine 04/05/19 07:00 CBC W/O DIFF,HEMOGRAM [HEME] Routine 04/05/19 09:07 Heat Therapy [OM.PC] PRN - Assessment Assessment:: Primip at 39+5 weeks gestation, induced for preeclampsia. at 0814. She did have a fever at the end of the labor. She plans to breastfeed. - Plan Plan:: 28 year old primip at 39 +3 weeks gestation with mild preeclampsia admitted for induction of labor. Patient has peripheral edema in legs and hands, proteinuria and bp in the 140/80 range. PIH labs have been stable except for slight decrease in platelets. She denies headache, nausea, RUQ pain. Cervix is fingertip, firm, station -3 and ballotable. Plan : Cytotec vaginal for cervical ripening and induction. Once cervix is favorable, will plan to start pitocin induction. Monitor bp and treat with IV labetalol if it becomes uncontrolled. PIH labs on admit. 04/04/19: 1: Routine care. MOnitor for continued fever. support and education. 2. Preeclampsia - continue to monitor bp. 3. Hypothyroidism - continue current dose of levothyroxine 4. Hypokalemia - check BMP in am, taking KCl liquid supplement.
--- NOTE | 2019-04-04 12:41 | PCM48HPAN ---
Post Anesthesia Note - EVALUATION WITHIN 48HRS OF ANESTHETIC Vital Signs in Normal Range: Yes Patient Participated in Evaluation: Yes Respiratory Function Stable: Yes Airway Patent: Yes Cardiovascular Function Stable: Yes Hydration Status Stable: Yes Pain Control Satisfactory: Yes Nausea and Vomiting Control Satisfactory: Yes Mental Status Recovered: Yes Vital Signs: Last Vital Signs Temp Pulse 81 04/02/19 19:30 Resp 16 04/02/19 19:30 BP 141/81 H 04/02/19 19:30 Pulse Ox 87 L 04/02/19 19:30 - COMMENTS/OBSERVATIONS Free Text/Narrative:: Shabana reports good strength in bilateral lower extremities and has no further questions at this time.
[2019-04-04] MEDS: Levothyroxine 50 MCG Tab PO SCH (23:29)
[2019-04-04] MEDS: Prenatal Multivitamin with Calcium/Folic Acid/Iron Tab PO SCH (23:29)
[2019-04-04] MEDS: Potassium Chloride 10% 20 MEQ/15 ML Soln 15 ML UD Cup PO SCH ×2 (23:30)
[2019-04-05] MEDS: Ibuprofen 600 MG Tab PO PRN ×2 (03:58→16:28)
[2019-04-05] MEDS: Potassium Chloride 10% 20 MEQ/15 ML Soln 15 ML UD Cup PO SCH ×2 (09:08→20:15)
[2019-04-05] MEDS: Prenatal Multivitamin with Calcium/Folic Acid/Iron Tab PO SCH (09:08)
[2019-04-05] MEDS: Levothyroxine 50 MCG Tab PO SCH (09:08)
--- NOTE | 2019-04-05 12:22 | PCM.PN ---
- General Info Date of Service: 04/05/19 Admission Dx/Problem (Free Text): Patient Status Order with Admit Dx/Problem 04/02/19 19:30 Patient Status [ADT] Routine Admission Diagnosis/Problem Admission Diagnosis/Problem 39 weeks gestation of Subjective Update: Patient is doing well, she seems brighter and more energetic today after some sleep and shower. She seems comfortable with baby. Denies headache, nausea. She feels her swelling is coming down. Bleeding is slowing and no clots. Mild uterine cramping relieved with ibuprofen. Blood pressures have been stable and no fever since intrapartum. UA and influenza swabs yesterday were negative. Functional Status: Reports: Pain Controlled, Tolerating Diet, Ambulating, Urinating - Review of Systems General: Reports: No Symptoms HEENT: Reports: No Symptoms Pulmonary: Reports: No Symptoms Cardiovascular: Reports: Edema Gastrointestinal: Reports: No Symptoms Genitourinary: Reports: No Symptoms Musculoskeletal: Reports: No Symptoms Skin: Reports: No Symptoms Neurological: Reports: No Symptoms Psychiatric: Reports: No Symptoms - Patient Data Vitals - Most Recent: Last Vital Signs Temp 36.6 C 04/05/19 09:06 Pulse 73 04/05/19 09:06 Resp 16 04/05/19 03:51 BP 123/64 04/05/19 09:06 Pulse Ox 98 04/05/19 09:06 Weight - Most Recent: 82.554 kg I&O - Last 24 Hours: Intake & Output 04/04/19 04/05/19 04/05/19 22:59 06:59 14:59 Intake Total 340 360 Balance 340 360 Lab Results Last 24 Hours: Laboratory Results - last 24 hr 04/04/19 04/05/19 Range/Units 13:47 07:40 WBC 18.15 H (3.98-10.04) K/mm3 RBC 3.37 L (3.98-5.22) M/mm3 Hgb 10.1 L (11.2-15.7) gm/dl Hct 31.2 L (34.1-44.9) % MCV 92.6 (79.4-94.8) fl MCH 30.0 (25.6-32.2) pg MCHC 32.4 (32.2-35.5) g/dl RDW Std Deviation 43.7 (36.4-46.3) fL Plt Count 199 (182-369) K/mm3 MPV 10.3 (9.4-12.3) fl Urine Color Yellow (Yellow) Urine Appearance Clear (Clear) Urine pH 7.5 (5.0-8.0) Ur Specific [place] 1.015 (1.005-1.030) Urine Protein 1+ H (Negative) Urine Glucose (UA) Negative (Negative) Urine Ketones 1+ H (Negative) Urine Occult Blood 3+ H (Negative) Urine Nitrite Negative (Negative) Urine Bilirubin Negative (Negative) Urine Urobilinogen 0.2 (0.2-1.0) Ur Leukocyte Esterase Negative (Negative) Urine RBC 20-30 H (0-5) /hpf Urine WBC 0-5 (0-5) /hpf Ur Squamous Epith Cells 0-5 (0-5) /hpf Urine Bacteria Few (FEW) /hpf Urine Mucus Few (FEW) /hpf Karl Results Last 24 Hours: Microbiology 04/04/19 13:45 Influenza Type A Antigen Screen - Final Nasopharyngeal Swab NEGATIVE INFLUENZA A VIRUS AG REFERENCE RANGE: NEGATIVE Influenza Type B Antigen Screen - Final NEGATIVE INFLUENZA B VIRUS AG REFERENCE RANGE: NEGATIVE Med Orders - Current: Current Medications Acetaminophen (Tylenol) 650 mg PO Q4H PRN PRN Reason: mild pain or fever Benzocaine/Menthol (Dermoplast Pain Relief [place]) 0 gm TOP ASDIRECTED PRN PRN Reason: Perineal Comfort Measure Last Admin: 04/04/19 09:24 Dose: 1 can Docusate Sodium (Colace) 100 mg PO BID PRN PRN Reason: Constipation Last Admin: 04/04/19 09:20 Dose: 100 mg Ibuprofen (Motrin) 600 mg PO Q4H PRN PRN Reason: Mild pain or fever Last Admin: 04/05/19 03:58 Dose: 600 mg Levothyroxine Sodium (Synthroid) 50 mcg PO ACBREAKFAST REPLACED BY [facility] Last Admin: 04/05/19 09:08 Dose: Not Given Potassium Chloride (Potassium Chloride Solution) 20 meq PO BID REPLACED BY [facility] Last Admin: 04/05/19 09:08 Dose: 20 meq Prenat Multivit/Caustic Preparer/Iron/Folic Ac ( Plus Iron) 1 each PO DAILY REPLACED BY [facility] Last Admin: 04/05/19 09:08 Dose: 1 each Simethicone (Simethicone) 80 mg PO Q4H PRN PRN Reason: Gas Witch [place] (Tucks) 1 pad TOP ASDIRECTED PRN PRN Reason: Perineal Comfort Measure Last Admin: 04/04/19 09:23 Dose: 1 jar Discontinued Medications Bupivacaine HCl (Sensorcaine-Mpf 0.25%) 10 ml .ROUTE .STK-MED ONE Stop: 04/04/19 00:01 Ephedrine Sulfate (Ephedrine Sulfate) 5 mg IVPUSH ASDIRECTED PRN PRN Reason: Hypotension Fentanyl (Sublimaze) 100 mcg EPIDUR Q3H PRN PRN Reason: Pain Last Admin: 04/03/19 19:00 Dose: 100 mcg Fentanyl/Bupivacaine HCl (Fentanyl/Bupivacaine/Ns 2 Mcg-0.125% 250 Ml) 2 mcg EPIDUR CONTINUOUS PRN PRN Reason: Pain Last Admin: 04/03/19 19:00 Dose: 2 mcg Lactated Ringer's (Ringers, Lactated) 1,000 mls @ 100 mls/hr IV ASDIRECTED ISELA Last Admin: 04/04/19 04:08 Dose: 100 mls/hr Oxytocin/Lactated Ringer's (Pitocin In Lr 10 Units/1,000 Ml) 10 unit in 1,000 mls @ 12 mls/hr IV TITRATE ISELA; Protocol Last Titration: 04/04/19 01:07 Dose: 6 munits/min, 36 mls/hr Influenza Virus Vaccine (Pharmacy To Dose - Influenza Vaccine) 1 each IM ONETIME ONE Stop: 04/03/19 07:49 Influenza Virus Vaccine (Fluzone Quad [id number] Syringe) 60 mcg IM .ONCE ONE Stop: 04/03/19 08:01 Lidocaine HCl (Xylocaine 1%) 20 ml INJECT ONETIME ONE Stop: 04/02/19 19:30 Misoprostol (Cytotec) 25 mcg VAG ONETIME ONE Stop: 04/02/19 22:01 Last Admin: 04/03/19 00:15 Dose: 25 mcg Misoprostol (Cytotec) 25 mcg VAG Q4H ISELA Stop: 04/03/19 08:31 Last Admin: 04/03/19 08:53 Dose: 25 mcg Nalbuphine HCl (Nubain) 10 mg IVPUSH Q2H PRN PRN Reason: Pain Ondansetron HCl (Zofran) 4 mg IVPUSH Q4H PRN PRN Reason: Nausea/Vomiting Ondansetron HCl (Zofran) 4 mg IVPUSH ONETIME PRN PRN Reason: Nausea/Vomiting Sodium Chloride (Saline Flush) 10 ml FLUSH ASDIRECTED PRN PRN Reason: Keep Vein Open - Exam General: Alert, Oriented HEENT: Pupils Equal, Pupils Reactive, Mucous Membr. Moist/[place] Neck: Supple Lungs: Normal Respiratory Effort Cardiovascular: Regular Rate, Regular Rhythm GI/Abdominal Exam: Normal Bowel Sounds, Soft, No Distention Back Exam: Normal Inspection, Full Range of Motion (No tenderness over epidural site) Extremities: Pedal Edema (decreased edema compared to yesterday. No calf tenderness) Skin: Warm, Dry, Intact Wound/Incisions: Healing Well Neurological: No New Focal Deficit Psy/Mental Status: Alert, Normal Affect, Normal Mood - Problem List & Annotations (1) Pre-eclampsia affecting , antepartum SNOMED Code(s): 285665635, 375372131 Code(s): O14.90 - UNSPECIFIED PRE-ECLAMPSIA, UNSPECIFIED TRIMESTER Status: Acute Current Visit: Yes (2) 39 weeks gestation of SNOMED Code(s): 48542033 Code(s): Z3A.39 - 39 WEEKS GESTATION OF Status: Acute Current Visit: Yes (3) Hypokalemia SNOMED Code(s): 08011050 Code(s): E87.6 - HYPOKALEMIA Status: Acute Current Visit: Yes (4) Hypothyroidism SNOMED Code(s): 74496338 Code(s): E03.9 - HYPOTHYROIDISM, UNSPECIFIED Status: Acute Current Visit : Yes Qualifiers: Hypothyroidism type: acquired Qualified Code(s): E03.9 - Hypothyroidism, unspecified (5) Normal spontaneous vaginal delivery SNOMED Code(s): 68832493, 479243316 Code(s): O80 - ENCOUNTER FOR FULL-TERM UNCOMPLICATED DELIVERY Status: Acute Current Visit: Yes - Problem List Review Problem List Initiated/Reviewed/Updated: Yes - My Orders Last 24 Hours: My Active Orders 04/05/19 09:07 Heat Therapy [OM.PC] PRN - Assessment Assessment:: Primip at 39+5 weeks gestation, induced for preeclampsia. at 0814. She did have a fever at the end of the labor. She plans to breastfeed. 04/05/19: Normal course. Bleeding is slowing. Fundus firms with palpation. is improving. No fever. BP normotensive. Hypothyroidism - continue current levothyroxine dose and will recheck at 6 weeks Hypokalemia - on oral K+ liquid. Will check CMP in am. - Plan Plan:: 28 year old primip at 39 +3 weeks gestation with mild preeclampsia admitted for induction of labor. Patient has peripheral edema in legs and hands, proteinuria and bp in the 140/80 range. PIH labs have been stable except for slight decrease in platelets. She denies headache, nausea, RUQ pain. Cervix is fingertip, firm, station -3 and ballotable. Plan : Cytotec vaginal for cervical ripening and induction. Once cervix is favorable, will plan to start pitocin induction. Monitor bp and treat with IV labetalol if it becomes uncontrolled. PIH labs on admit. 04/04/19: 1: Routine care. MOnitor for continued fever. support and education. 2. Preeclampsia - continue to monitor bp. 3. Hypothyroidism - continue current dose of levothyroxine 4. Hypokalemia - taking KCl liquid supplement. 04/05/19: 1. Continue routine care. 2. support and education. 3. Preeclampsia - bp stable, continue to monitor 4. Hypothryroidism - continue current dose. 5. Hypokalemia - check BMP in am
[2019-04-05] MEDS ORDERED: FLU Vacc QS2019-20(6MOS+)/PF 60 MCG/0.5 ML SYRINGE IM ONE (20:02)
[2019-04-05] MEDS: Docusate Sodium 100 MG Cap PO PRN (20:21)
[2019-04-06] MEDS: Ibuprofen 600 MG Tab PO PRN ×2 (04:10→09:09)
[2019-04-06] MEDS: Levothyroxine 50 MCG Tab PO SCH (06:45)
[2019-04-06] MEDS: Potassium Chloride 10% 20 MEQ/15 ML Soln 15 ML UD Cup PO SCH (09:10)
[2019-04-06] MEDS: Docusate Sodium 100 MG Cap PO PRN (09:10)
[2019-04-06] MEDS: Prenatal Multivitamin with Calcium/Folic Acid/Iron Tab PO SCH (09:11)
--- NOTE | 2019-04-06 14:15 | PCM.DCSUM1 ---
Discharge Summary - Hospital Course Free Text/Narrative:: 28year old with mild preeclampsia, admitted for induction of labor. WE first noticed increased bp at the 37 week visit. Her bp has been running in the 140's/80's, but urine protein to creatinine ratio has been >0.3. PIH labs have been wnl, except slight decrease in platelets at last visit. WE have been doing BPP and they have been normal. EFW on last ultrasound on 03/31/19 was 7 lb 9 oz with ALEC 10.8 on 03/31/19. GBS is negative and 1 hour glucola wnl. Her blood type is Apos. Infection testing has been negative except for Bacterial vaginosis. Her labs did show a significant hypokalemia and we have started her on oral liquid potassium supplement since she is not able to swallow pills. She does also have hypothyroidism and is on levothyroxine. She was given a total of 3 doses of vaginal cytotec 25 mcg, starting at 0015 on 04/03/19. Pitocin was started on 04/03/19 at 0100 and then AROM to augment at 1753 on 04/03/19. Strip was category II with intermittent minimal variability and some variable decelerations. There were late decels at one point that responded to decreasing pitocin dose and position changes. At the time of AROM , she was 1 cm dilated, 50% effaced and station -3. She started feeling her contractions shortly after that and had an epidural placed about 1900 and was comfortable with that. Her bp readings have been in the normotensive range throughout labor. She did start running a low grade temp early this am and temp was 101 temporal in second stage. She was complete by 0700 and she started pushing shortly after. She did well with pushing. FHR did decel with pushing, but recovered to 130-140. Baby was for 3 minutes and not picking up FHR at that time. Time of delivery was 0814 from MICHAEL position. It was a baby boy. There was nuchal cord x 1 that was loose and easily reduced. Baby was blue, limp and not breathing. The cord was clamped and cut and baby brought to [facility]. PPV was started and HR was <60 so chest compressions were started and continued for about 20 seconds and then HR was >60 and increasing and baby was starting to pink up. PPV was continued for about 1 minute and then blow by oxygen provided. Tone was still poor, but gradually increased with stimulation. Apgars were 1, 5 and 9 and 1, 5 and 10 minutes respectively. Oxygen saturation was 95% at about 10 minutes of age. Delee suction performed and 1 ml of clear fluid obtained. Baby transitioned on the Panda. Placenta delivered spontaneously at 0824 and there were 3 vessels in the cord and placenta was intact. There was a second degree laceration that was repaired in the usual manner. EBL was 200 ml. Bladder was catheterized after the tear was repaired and a large amount of urine drained. Fundus was firm by palpation and 3 fingers below U. Bleeding was minimal. Baby was brought to Mom , placed skin to skin and latched at the breast. Both Mom and baby were left in the delivery room in stable condition. We did perform cath UA and flu swab due to her fever and baby getting lethargic and hypoglycemia. Both were negative. She has had no further fever. Bleeding has been slowing, fundus has been firm. She has been eating and ambulating. She has been and that is now going well. She denies nipple pain. She feels that her breasts are filling. She has been using ibuprofen as needed for cramping and that has been working well. We did repeat BMP on and her K+ level is 3.4. Diagnosis: Stroke: No Modified Hansford Scale: No Symptoms at All Modified Hansford Scale Score: 0 - Discharge Data Discharge Date: 04/06/19 Discharge Disposition: Home, Self-Care 01 Condition: Good - Referral to Home Health Primary Care Physician: Kasandra Garzon MD - Discharge Diagnosis/Problem(s) (1) Pre-eclampsia affecting , antepartum SNOMED Code(s): 690104015, 697937430 ICD Code: O14.90 - UNSPECIFIED PRE-ECLAMPSIA, UNSPECIFIED TRIMESTER Status : Acute Current Visit: Yes (2) 39 weeks gestation of SNOMED Code(s): 28489947 ICD Code: Z3A.39 - 39 WEEKS GESTATION OF Status: Acute Current Visit: Yes (3) Hypokalemia SNOMED Code(s): 98073661 ICD Code: E87.6 - HYPOKALEMIA Status: Acute Current Visit: Yes (4) Hypothyroidism SNOMED Code(s): 22333346 ICD Code: E03.9 - HYPOTHYROIDISM, UNSPECIFIED Status: Acute Current Visit : Yes Qualifiers: Hypothyroidism type: acquired Qualified Code(s): E03.9 - Hypothyroidism, unspecified (5) Normal spontaneous vaginal delivery SNOMED Code(s): 82700902, 389365812 ICD Code: O80 - ENCOUNTER FOR FULL-TERM UNCOMPLICATED DELIVERY Status: Acute Current Visit: Yes - Patient Instructions Diet: Usual Diet as Tolerated (Try to eat foods that are high in iron such as red meat, iron fortified breakfast cereal, nuts and dark green vegetables. Also try to eat foods that have potassium.), Drink 8-10+ Glasses/Day Activity: As Tolerated Driving: May Drive Today Showering/Bathing: May Shower Notify Provider of: Fever, Increased Pain, Swelling and Redness, Drainage, Nausea and/or Vomiting - Discharge Plan *PRESCRIPTION DRUG MONITORING PROGRAM REVIEWED*: No *COPY OF PRESCRIPTION DRUG MONITORING REPORT IN PATIENT MYNOR: No Home Medications: Home Meds Levothyroxine [Synthroid] 50 mcg PO ACBREAKFAST 04/02/19 [History] Potassium Chloride 30 ml PO BID 04/02/19 [History] Acetaminophen [Tylenol] 650 mg PO Q4H PRN tablet 04/06/19 [Rx] Benzocaine/Menthol [Dermoplast Pain Relief [place]] 1 applic TOP ASDIRECTED PRN canister 04/06/19 [Rx] Docusate Sodium [Colace] 100 mg PO BID PRN cap 04/06/19 [Rx] Ibuprofen [Motrin] 600 mg PO Q4H PRN tablet 04/06/19 [Rx] Vit with Ca/FA/Iron [ Plus Iron] 1 each PO DAILY tablet [Rx] Kenny Mercedez [Tucks] 1 pad TOP ASDIRECTED PRN pad 04/06/19 [Rx] Oxygen Therapy Mode: Room Air Patient Handouts: Preeclampsia and Eclampsia, Rooming-In With Your , and Self-Care, Vaginal Delivery, Care After, Potassium Content of Foods, SIDS Prevention Information, [id number] Referrals: Kasandra Garzon MD [Primary Care Provider] - - Discharge Summary/Plan Comment DC Time >30 min.: No Discharge Summary/Plan Comment: A/P: 1. Preeclampsia - bp readings have been stable. Will have patient continue to monitor for signs and symptoms. 2. - she is doing well, baby is latching better and nursing about every 2 hours. Denies nipple pain. Slight bruising of left nipple. Follow up in clinic on 04/07/19 for weight check on baby. 3. Fever - resolved. UA negative for infection and influenza swab negative. Pt did receive flu shot today. 4. Normal course - continue routine care and instructions. Follow up in 6 weeks. 5. Hypothyroidism - continue current dose of levothyroxine and will plan to check TSH and FT4 before visit. 6. Hypokalemia - continue oral supplement and will follow K+ level. 7. anemia - continue PNV and try to eat foods high in iron. - General Info Date of Service: 04/06/19 Admission Dx/Problem (Free Text: Patient Status Order with Admit Dx/Problem 04/02/19 19:30 Patient Status [ADT] Routine Admission Diagnosis/Problem Admission Diagnosis/Problem 39 weeks gestation of Subjective Update: 04/05/19: Patient is doing well, she seems brighter and more energetic today after some sleep and shower. She seems comfortable with baby. Denies headache, nausea. She feels her swelling is coming down. Bleeding is slowing and no clots. Mild uterine cramping relieved with ibuprofen. Blood pressures have been stable and no fever since intrapartum. UA and influenza swabs yesterday were negative. 04/06/19: Patient is doing well, baby has been nursing about every 2 hours for 10 minutes on one breast. She denies nipple pain with . She feels her breasts are filling. Bleeding is slowing, fundus has been firm. She denies headache and swelling is coming down. Her bp continues to be stable and no further fever. Lab today shows K+ level is 3.4. Albumin level is low. EPDS score today is 1. Ibuprofen has been keeping her comfortable. Functional Status: Reports: Pain Controlled, Tolerating Diet, Ambulating, Urinating - Review of Systems General: Reports: No Symptoms HEENT: Reports: No Symptoms Pulmonary: Reports: No Symptoms Cardiovascular: Reports: Edema Gastrointestinal: Reports: No Symptoms Genitourinary: Reports: No Symptoms Musculoskeletal: Reports: No Symptoms Skin: Reports: No Symptoms Neurological: Reports: No Symptoms Psychiatric: Reports: No Symptoms - Patient Data Vitals - Most Recent: Last Vital Signs Temp 36.8 C 04/06/19 09:17 Pulse 58 L 04/06/19 09:17 Resp 14 04/06/19 09:17 BP 133/75 04/06/19 09:17 Pulse Ox 99 04/06/19 09:17 Weight - Most Recent: 82.554 kg I&O - Last 24 hours: Intake & Output 04/05/19 04/06/19 04/06/19 22:59 06:59 14:59 Intake Total 240 Balance 240 Lab Results - Last 24 hrs: Laboratory Results - last 24 hr 04/06/19 Range/Units 06:50 Sodium 139 (136-145) mEq/L Potassium 3.4 L (3.5-5.1) mEq/L Chloride 106 (98-107) mEq/L Carbon Dioxide 26 (21-32) mEq/L Anion Gap 10.4 (5-15) BUN 6 L (7-18) mg/dL Creatinine 0.6 (0.55-1.02) mg/dL Est Cr Clr Drug Dosing 136.96 mL/min Estimated GFR (MDRD) > 60 (>60) mL/min BUN/Creatinine Ratio 10.0 L (14-18) Glucose 73 L (74-106) mg/dL Calcium 8.2 L (8.5-10.1) mg/dL Total Bilirubin 0.3 (0.2-1.0) mg/dL AST 19 (15-37) U/L ALT 14 (14-59) U/L Alkaline Phosphatase 129 H (46-116) U/L Total Protein 5.8 L (6.4-8.2) g/dl Albumin 2.4 L (3.4-5.0) g/dl Globulin 3.4 gm/dL Albumin/Globulin Ratio 0.7 L (1-2) Med Orders - Current: Current Medications Acetaminophen (Tylenol) 650 mg PO Q4H PRN PRN Reason: mild pain or fever Benzocaine/Menthol (Dermoplast Pain Relief [place]) 0 gm TOP ASDIRECTED PRN PRN Reason: Perineal Comfort Measure Last Admin: 04/04/19 09:24 Dose: 1 can Docusate Sodium (Colace) 100 mg PO BID PRN PRN Reason: Constipation Last Admin: 04/06/19 09:10 Dose: 100 mg Ibuprofen (Motrin) 600 mg PO Q4H PRN PRN Reason: Mild pain or fever Last Admin: 04/06/19 09:09 Dose: 600 mg Levothyroxine Sodium (Synthroid) 50 mcg PO ACBREAKFAST ISELA Last Admin: 04/06/19 06:45 Dose: Not Given Potassium Chloride (Potassium Chloride Solution) 20 meq PO BID ISELA Last Admin: 04/06/19 09:10 Dose: 20 meq Prenat Multivit/[place]/Iron/Folic Ac ( Plus Iron) 1 each PO DAILY ISELA Last Admin: 04/06/19 09:11 Dose: Not Given Simethicone (Simethicone) 80 mg PO Q4H PRN PRN Reason: Gas Witch Mercedez (Tucks) 1 pad TOP ASDIRECTED PRN PRN Reason: Perineal Comfort Measure Last Admin: 04/04/19 09:23 Dose: 1 jar Discontinued Medications Bupivacaine HCl (Sensorcaine-Mpf 0.25%) 10 ml .ROUTE .STK-MED ONE Stop: 04/04/19 00:01 Ephedrine Sulfate (Ephedrine Sulfate) 5 mg IVPUSH ASDIRECTED PRN PRN Reason: Hypotension Fentanyl (Sublimaze) 100 mcg EPIDUR Q3H PRN PRN Reason: Pain Last Admin: 04/03/19 19:00 Dose: 100 mcg Fentanyl/Bupivacaine HCl (Fentanyl/Bupivacaine/Ns 2 Mcg-0.125% 250 Ml) 2 mcg EPIDUR CONTINUOUS PRN PRN Reason: Pain Last Admin: 04/03/19 19:00 Dose: 2 mcg Lactated Ringer's (Ringers, Lactated) 1,000 mls @ 100 mls/hr IV ASDIRECTED ISELA Last Admin: 04/04/19 04:08 Dose: 100 mls/hr Oxytocin/Lactated Ringer's (Pitocin In Lr 10 Units/1,000 Ml) 10 unit in 1,000 mls @ 12 mls/hr IV TITRATE ISELA; Protocol Last Titration: 04/04/19 01:07 Dose: 6 munits/min, 36 mls/hr Influenza Virus Vaccine (Pharmacy To Dose - Influenza Vaccine) 1 each IM ONETIME ONE Stop: 04/03/19 07:49 Influenza Virus Vaccine (Fluzone Quad Syringe) 60 mcg IM .ONCE ONE Stop: 04/03/19 08:01 Last Admin: 04/06/19 08:58 Dose: Not Given Influenza Virus Vaccine (Fluzone Quad Syringe) 60 mcg IM .ONCE ONE Stop: 04/05/19 20:03 Last Admin: 04/05/19 20:10 Dose: 60 mcg Lidocaine HCl (Xylocaine 1%) 20 ml INJECT ONETIME ONE Stop: 04/02/19 19:30 Last Admin: 04/06/19 08:58 Dose: Not Given Misoprostol (Cytotec) 25 mcg VAG ONETIME ONE Stop: 04/02/19 22:01 Last Admin: 04/03/19 00:15 Dose: 25 mcg Misoprostol (Cytotec) 25 mcg VAG Q4H ISELA Stop: 04/03/19 08:31 Last Admin: 04/03/19 08:53 Dose: 25 mcg Nalbuphine HCl (Nubain) 10 mg IVPUSH Q2H PRN PRN Reason: Pain Ondansetron HCl (Zofran) 4 mg IVPUSH Q4H PRN PRN Reason: Nausea/Vomiting Ondansetron HCl (Zofran) 4 mg IVPUSH ONETIME PRN PRN Reason: Nausea/Vomiting Sodium Chloride (Saline Flush) 10 ml FLUSH ASDIRECTED PRN PRN Reason: Keep Vein Open - Exam General: Reports: Alert, Oriented HEENT: Reports: Pupils Equal, EOMI, Mucous Membr. Moist/[place] Neck: Reports: Supple Lungs: Reports: Normal Respiratory Effort Cardiovascular: Reports: Regular Rate, Regular Rhythm GI/Abdominal Exam: Normal Bowel Sounds, Soft, Non-Tender, No Organomegaly, No Distention, No Abnormal Bruit, No Mass, Pelvis Stable (Female) Exam: Normal External Exam, Vaginal Bleeding (Fundus is firm, 2 fingers below U) Rectal (Female) Exam: Deferred Back Exam: Reports: Normal Inspection, Full Range of Motion Extremities: Normal Inspection, Normal Range of Motion, Non-Tender, Normal Capillary Refill, Pedal Edema (mild edema, no calf tenderness to palpation) Skin: Reports: Warm, Dry, Intact Wound/Incisions: Reports: Healing Well Neurological: Reports: No New Focal Deficit Psy/Mental Status: Reports: Alert, Normal Affect, Normal Mood
== END 2019-04-06 15:15 | disposition home or self-care (01) | DRG 560 ==
LOC: JD.OB 08:14 → OBSVTOIN 04-04 08:14 → JD.OB 04-04 08:15
PROVIDERS: ADMIT Family Medicine; ATTEND Family Medicine
PROC: 10E0XZZ Delivery of Products of Conception, External Approach (ICD-10-PCS; principal; 2019-04-04)
PROC: 3E033VJ Introduction of Other Hormone into Peripheral Vein, Percutaneous Approach (ICD-10-PCS; 2019-04-04)
PROC: 3E0R3BZ Introduction of Anesthetic Agent into Spinal Canal, Percutaneous Approach (ICD-10-PCS; 2019-04-04)
PROC: 0KQM0ZZ Repair Perineum Muscle, Open Approach (ICD-10-PCS; 2019-04-04)
PROC: 10907ZC Drainage of Amniotic Fluid, Therapeutic from Products of Conception, Via Natural or Artificial Opening (ICD-10-PCS; 2019-04-04)
DX: O14.04 Mild to moderate pre-eclampsia, complicating childbirth (principal); O99.284 Endocrine, nutritional and metabolic diseases complicating childbirth; E87.6 Hypokalemia; E03.9 Hypothyroidism, unspecified; O90.81 Anemia of the puerperium; O70.1 Second degree perineal laceration during delivery; O76 Abnormality in fetal heart rate and rhythm complicating labor and delivery; D64.9 Anemia, unspecified; O75.3 Other infection during labor; O69.81X0 Labor and delivery complicated by cord around neck, without compression, not applicable or unspecified; B96.89 Other specified bacterial agents as the cause of diseases classified elsewhere; Z88.0 Allergy status to penicillin; Z3A.39 39 weeks gestation of pregnancy; Z37.0 Single live birth; Z79.899 Other long term (current) drug therapy
CPT/HCPCS: 01967; 36415; 51701; 51702; 59025; 59409; 80053; 81001; 82565; 82570; 83615; 84156; 84450; 84460; 84520; 84550; 85025; 85027; 86592; 86850; 86900; 86901; 87804; 90686; A9270-GY; G0008; J2590; J3010; J3490; J7120

== ENCOUNTER 2021-02-19 07:01 | Inpatient (IN) | payer BC ==
[2021-02-19] MEDS ORDERED: Oxytocin/Lactated Ringers 10 UNIT/1,000 ML BAG IV SCH ×2 (07:45)
[2021-02-19] MEDS ORDERED: Sodium Chloride 0.9% 10 ML Syringe FLUSH PRN (07:45)
[2021-02-19] MEDS ORDERED: Nalbuphine 10 MG/1 ML Vial IVPUSH PRN (07:45)
[2021-02-19] MEDS ORDERED: Lidocaine 1% 50 ML MDV INJECT ONE (07:45)
[2021-02-19] MEDS ORDERED: Famotidine 20 MG Tab PO PRN (07:45)
[2021-02-19] MEDS ORDERED: Calcium Carbonate 500 MG Tab.Chew PO PRN (07:45)
[2021-02-19] MEDS ORDERED: Ondansetron 4 MG/2 ML SDV IVPUSH PRN (07:45)
--- NOTE | 2021-02-19 08:11 | PCM.LDHP ---
L&D History of Present Illness - General Date of Service: 02/19/21 Admit Problem/Dx: Patient Status Order with Admit Dx/Problem 02/19/21 07:45 Patient Status [ADT] Routine Admission Diagnosis/Problem Admission Diagnosis/Problem Source of Information: Patient History Limitations: Reports: No Limitations - History of Present Illness Introduction:: 30 yo at 40+3 weeks gestation admitted for elective induction due to term . She has not been feeling any contractions, but we are noticing a few on the strip this am. She has a history of hypothyroidism and on is levothyroxine 50 mcg daily and also hypokalemia and has been taking 80mEq KCL daily. She has a really hard time swallowing pills, so has been taking either the liquid KCl or the tabs that dissolve in water. Initial labs revealed blood type A positive with negative antibody screen. She has good immunity to rubella and varicella. Infectious disease screens were negative including Hepatitis C antibody. She did do the [place] test and is was normal with XX sex chromosomes, so female fetus. MSAFP test was low risk. 1 hour gluc rodriguez was 116. Last TSH done 11/16/20 was 2.9. GBS test is negative. She has received Tdap and had flu shot in March 2020. Last was induced at 39 weeks for mild preeclampsia and she had a baby boy weighing 7 lb 3oz. Baby required full resuscitation with PPV and chest compressions but did well the remainder of the course in the hospital. There was a nuchal cord at delivery and there had been decelerations with pushing and then baby for about 3 minutes prior to delivery. NST reactive this am with moderate variability, baseline FHR 140 and accelerations noted, no decels. Cervix is soft, 3-4 cm dilated, posterior position and 50% effaced. Vertex presenting part and station -1. A: Term at 40+3 weeks. Favorable cervix for induction. Hypothyroidism Hypokalemia P: Start pitocin induction per protocol. Plan AROM to augment about noon. Epidural when pt desires. Anticipate . Plans to breastfeed. continue 50 mcg dose of levothyroxine. Will check BMP and continue KCl supplementation. - Related Data Allergies/Adverse Reactions: Allergies Allergy/AdvReac Type Severity Reaction Status Date / Time Penicillins Allergy Hives Verified 02/19/21 07:10 seafood Allergy Other Uncoded 02/19/21 07:10 Home Medications: Home Meds Levothyroxine [Synthroid] 50 mcg PO ACBREAKFAST 04/02/19 [History] Vit with Ca/FA/Iron [ Plus Iron] 1 each PO DAILY tablet 04/06/19 [Rx] Potassium Chloride 30 ml PO BID 02/19/21 [History] Past Medical History - Past Health History Medical/Surgical History: Denies Medical/Surgical History HEENT History: Reports: Other (See Below) Other HEENT History: wears glasses 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 Neurological History: Reports: Migraines Endocrine/Metabolic History: Reports: Hypothyroidism Social & Family History - Family History Family Medical History: No Pertinent Family History - Tobacco Use Tobacco Use Status *Q: Never Tobacco User Tobacco Use Within Last Twelve Months: No - Alcohol Use Alcohol Use History: No - Recreational Drug Use Recreational Drug Use: No Drug Use in Last 12 Months: No - Living Situation & Occupation Living situation: Reports: Occupation: Employed H&P Review of Systems - Review of Systems: Review Of Systems: See Below General: Reports: No Symptoms HEENT: Reports: No Symptoms Pulmonary: Reports: No Symptoms Cardiovascular: Reports: No Symptoms Gastrointestinal: Reports: No Symptoms Genitourinary: Reports: No Symptoms Musculoskeletal: Reports: No Symptoms Skin: Reports: No Symptoms Psychiatric: Reports: No Symptoms Neurological: Reports: No Symptoms Hematologic/Lymphatic: Reports: No Symptoms Immunologic: Reports: No Symptoms L&D Exam - Exam Exam: See Below - Vital Signs Weight: 85.185 kg - OB Specific Contraction Duration (sec): 40-60 Contraction Frequency (min): Irregular Contraction Intensity: Mild Movement: Active Heart Tones: Present Heart Tones per Min: 140 Heart Rate (FHR) Variability: Moderate (6-25 bpm) Presentation: Vertex Estimated Weight: 7 lb - Lou Score Lou Score Cervix Position: Posterior Lou Score Consistency: Soft Lou Score Effacement: 51-70% Lou Score Dilation: 3-4 cm Lou Score Infant's Station: -1 ,0 Lou Score Total: 8 - Exam General: Alert, Oriented HEENT: Conjunctiva Clear, Mucosa Moist & [place], Pupils Equal Neck: Supple, Trachea Midline Lungs: Normal Respiratory Effort Cardiovascular: Regular Rate, Regular Rhythm GI/Abdominal Exam: Soft Rectal Exam: Deferred Genitourinary: Normal external exam, Cervical dilitation Back Exam: Normal Inspection, Full Range of Motion Extremities: Normal Inspection, No Pedal Edema Skin: Warm, Dry, Intact Psychiatric: Alert, Normal Affect, Normal Mood - Problem List (1) 40 weeks gestation of SNOMED Code(s): 10454101 ICD Code: Z3A.40 - 40 WEEKS GESTATION OF Status: Acute Current Visit: Yes (2) Hypokalemia SNOMED Code(s): 45673058 ICD Code: E87.6 - HYPOKALEMIA Status: Acute Current Visit: No (3) Hypothyroidism SNOMED Code(s): 93192176 ICD Code: E03.9 - HYPOTHYROIDISM, UNSPECIFIED Status: Acute Current Visit: No Qualifiers: Hypothyroidism type: acquired Qualified Code(s): E03.9 - Hypothyroidism, unspecified (4) Encounter for elective induction of labor SNOMED Code(s): 118402984 ICD Code: Z34.90 - ENCNTR FOR SUPRVSN OF NORMAL , UNSP, UNSP TRIMESTER Status: Acute Current Visit: Yes Problem List Initiated/Reviewed/Updated: Yes Orders Last 24hrs: Active Orders 24 hr Category Date Time Status Patient Status [ADT] Routine ADT 02/19/21 07:45 Ordered Activity as Tolerated [RC] PFP Care 02/19/21 07:45 Ordered Communication Order [RC] ASDIRECTED Care 02/19/21 07:45 Ordered Heart Tones [RC] ASDIRECTED Care 02/19/21 07:46 Ordered Non Stress Test [RC] PER UNIT ROUTINE Care 02/19/21 07:45 Ordered Intake and Output [RC] QSHIFT Care 02/19/21 07:47 Ordered Notify Provider [RC] PFP Care 02/19/21 07:45 Ordered Notify Provider [RC] PRN Care 02/19/21 07:45 Ordered Peripheral IV Care [RC] . DIRECTED Care 02/19/21 07:46 Ordered Vital Signs [RC] PER UNIT ROUTINE Care 02/19/21 07:45 Ordered Regular Diet [DIET] Diet 02/19/21 Breakfast Ordered BASIC METABOLIC PANEL,BMP [CHEM] Stat Lab 02/19/21 07:45 Ordered CBC W/O DIFF,HEMOGRAM [HEME] Stat Lab 02/19/21 07:45 Ordered CORONAVIRUS COVID-19 JASWINDER [MOLEC] Stat Lab 02/19/21 07:51 Ordered RAPID PLASMA REAGIN,RPR [CHEM] Routine Lab 02/19/21 07:45 Ordered TYPE AND SCREEN [BBK] Stat Lab 02/19/21 07:45 Ordered Calcium Carbonate [Tums] Med 02/19/21 07:45 Ordered 1,000 mg PO Q2H PRN Famotidine [Pepcid] Med 02/19/21 07:45 Ordered 20 mg PO Q12H PRN Lactated Ringers [Ringers, Lactated] 1,000 ml Med 02/19/21 07:45 Ordered IV ASDIRECTED Levothyroxine [Synthroid] Med 02/19/21 06:00 Ordered 50 mcg PO ACBREAKFAST Lidocaine 1% [Xylocaine 1%] Med 02/19/21 07:45 Once 50 ml INJECT ONETIME ONE Nalbuphine [Nubain] Med 02/19/21 07:45 Ordered 10 mg IVPUSH Q2H PRN Ondansetron [Zofran] Med 02/19/21 07:45 Ordered 4 mg IVPUSH Q4H PRN Oxytocin/Lactated Ringers [Pitocin in LR 10 Units/1,000 Med 02/19/21 07:45 Ordered ML] 10 unit in 1,000 ml IV .CONTINUOUS Oxytocin/Lactated Ringers [Pitocin in LR 10 Units/1,000 Med 02/19/21 07:45 O rdered ML] 10 unit in 1,000 ml IV TITRATE Sodium Chloride 0.9% [Saline Flush] Med 02/19/21 07:45 Ordered 10 ml FLUSH ASDIRECTED PRN Electronic Heart Tones Ext w TOCO [WOMSER] Oth 02/19/21 07:45 Ordered Routine Electronic Heart Tones Internal [WOMSER] Per Unit Oth 02/19/21 07:45 Ordered Routine Peripheral IV Insertion Adult [OM.PC] Routine Oth 02/19/21 07:45 Ordered Telemetry Monitoring [WOMSER] Routine Oth 02/19/21 07:45 Ordered Resuscitation Status Routine Resus Stat 02/19/21 07:45 Ordered Medication Orders Calcium Carbonate/Glycine (Calcium Carbonate 500 Mg Tab.Chew) 1,000 mg PO Q2H PRN PRN Reason: Indigestion Famotidine (Famotidine 20 Mg Tab) 20 mg PO Q12H PRN PRN Reason: Heartburn Oxytocin/Lactated Ringer's (Pitocin In Lr 10 Units/1,000 Ml) 10 unit in 1,000 mls @ 12 mls/hr IV TITRATE ISELA; Protocol Oxytocin/Lactated Ringer's (Pitocin In Lr 10 Units/1,000 Ml) 10 unit in 1,000 mls @ 500 mls/hr IV .CONTINUOUS ISELA Lactated Ringer's (Ringers, Lactated) 1,000 mls @ 100 mls/hr IV ASDIRECTED ISELA Levothyroxine Sodium (Levothyroxine 50 Mcg Tab) 50 mcg PO ACBREAKFAST ISELA Lidocaine HCl (Lidocaine 1% 50 Ml Mdv) 50 ml INJECT ONETIME ONE Stop: 02/19/21 07:46 Nalbuphine HCl (Nalbuphine 10 Mg/1 Ml Vial) 10 mg IVPUSH Q2H PRN PRN Reason: Pain Ondansetron HCl (Ondansetron 4 Mg/2 Ml Sdv) 4 mg IVPUSH Q4H PRN PRN Reason: Nausea/Vomiting Sodium Chloride (Sodium Chloride 0.9% 10 Ml Syringe) 10 ml FLUSH ASDIRECTED PRN PRN Reason: Keep Vein Open Assessment/Plan Comment:: A/P: 1. Term with favorable cervix and GBS negative - Start induction with pitocin per protocol. Will use AROM to augment. Expectant management, anticipate vaginal delivery. Epidural when patient requests. Patient plans to breastfeed. Skin to skin after delivery with delayed cord clamping if able. 2. Hypothyroidism - continue current dose of levothyroxine. 3. Hypokalemia - will check BMP and continue KCl supplement, 40mEq bid.
[2021-02-19] MEDS: Lactated Ringers 1,000 ML IV SCH ×2 (08:15→10:55)
[2021-02-19] MEDS: Levothyroxine 50 MCG Tab PO SCH (09:10)
[2021-02-19] MEDS ORDERED: Bupivacaine/fentaNYL/NS 100 ML Bag EPIDUR PRN (10:19)
[2021-02-19] MEDS ORDERED: fentaNYL 100 MCG/2 ML SDV EPIDUR PRN (10:19)
[2021-02-19] MEDS ORDERED: ePHEDrine 50 MG/ML SDV IVPUSH PRN (10:19)
[2021-02-19] MEDS ORDERED: diphenhydrAMINE 50 MG/ML SDV IVPUSH PRN (10:19)
--- NOTE | 2021-02-19 11:19 | PCM.PREANE ---
Preanesthetic Assessment - Procedure Proposed Procedure: angelina - Anesthesia/Transfusion/Family Hx Anesthesia History: Prior Anesthesia Without Reaction Family History of Anesthesia Reaction: No Transfusion History: No Prior Transfusion(s) Intubation History: Unknown - Review of Systems General: No Symptoms Pulmonary: No Symptoms Cardiovascular: No Symptoms Gastrointestinal: No Symptoms Neurological: No Symptoms Other: Reports: None - Physical Assessment Vital Signs: Last Vital Signs Temp 98.3 F 02/19/21 07:15 Pulse 60 02/19/21 07:15 Resp 16 02/19/21 07:15 BP 145/75 H 02/19/21 07:15 Pulse Ox 100 02/19/21 07:15 Height: 5 ft 6 in Weight: 85.185 kg ASA Class: 2 Mental Status: Alert & Oriented x3 Airway Class: Mallampati = 1 Dentition: Reports: Normal Dentition Thyro-Mental Finger Breadths: 3 Mouth Opening Finger Breadths: 3 ROM/Head Extension: Full Lungs: Clear to Auscultation, Normal Respiratory Effort Cardiovascular: Regular Rate, Regular Rhythm - Lab Values: Laboratory Last Values WBC 8.98 K/mm3 (3.98-10.04) 02/19/21 08:10 RBC 3.68 M/mm3 (3.98-5.22) L 02/19/21 08:10 Hgb 10.7 gm/dl (11.2-15.7) L 02/19/21 08:10 Hct 32.8 % (34.1-44.9) L 02/19/21 08:10 MCV 89.1 fl (79.4-94.8) D 02/19/21 08:10 MCH 29.1 pg (25.6-32.2) 02/19/21 08:10 MCHC 32.6 g/dl (32.2-35.5) 02/19/21 08:10 RDW Std Deviation 40.9 fL (36.4-46.3) 02/19/21 08:10 Plt Count 226 K/mm3 (182-369) 02/19/21 08:10 MPV 9.9 fl (9.4-12.3) 02/19/21 08:10 Sodium 138 mEq/L (136-145) 02/19/21 08:10 Potassium 3.4 mEq/L (3.5-5.1) L 02/19/21 08:10 Chloride 105 mEq/L (98-107) 02/19/21 08:10 Carbon Dioxide 21 mEq/L (21-32) 02/19/21 08:10 Anion Gap 15.4 (5-15) H 02/19/21 08:10 BUN 5 mg/dL (7-18) L 02/19/21 08:10 Creatinine 0.6 mg/dL (0.55-1.02) 02/19/21 08:10 Est Cr Clr Drug Dosing 129.51 mL/min 02/19/21 08:10 Estimated GFR (MDRD) > 60 mL/min (>60) 02/19/21 08:10 BUN/Creatinine Ratio 8.3 (14-18) L 02/19/21 08:10 Glucose 81 mg/dL (70-99) 02/19/21 08:10 Calcium 8.0 mg/dL (8.5-10.1) L 02/19/21 08:10 SARS-CoV-2 RNA (JASWINDER) Negative (NEGATIVE) 02/19/21 07:45 Blood Type A POSITIVE 02/19/21 08:10 Gel Antibody Screen Negative 02/19/21 08:10 - Allergies Allergies/Adverse Reactions: Allergies Allergy/AdvReac Type Severity Reaction Status Date / Time Penicillins Allergy Hives Verified 02/19/21 07:10 seafood Allergy Other Uncoded 02/19/21 07:10 - Blood Blood Available: No - Acknowledgements Anesthesia Type Planned: Epidural Pt an Appropriate Candidate for the Planned Anesthesia: Yes Alternatives and Risks of Anesthesia Discussed w Pt/Guardian: Yes Pt/Guardian Understands and Agrees with Anesthesia Plan: Yes PreAnesthesia Questionnaire - Past Health History Medical/Surgical History: Denies Medical/Surgical History HEENT History: Reports: Other (See Below) Other HEENT History: wears glasses Cardiovascular History: Reports: None Respiratory History: Reports: None Gastrointestinal History: Reports: GERD (with preg) HEALTHC[employer] INTER[employer]TER History: Reports: Musculoskeletal History: Reports: None Neurological History: Reports: Migraines Psychiatric History: Reports: Anxiety Endocrine/Metabolic History: Reports: Hypokalemia, Hypothyroidism - SUBSTANCE USE Tobacco Use Status *Q: Never Tobacco User Tobacco Use Within Last Twelve Months: No Second Hand Smoke Exposure: No Days Per Week of Alcohol Use: 0 Recreational Drug Use History: No - HOME MEDS Home Medications: Home Meds Levothyroxine [Synthroid] 50 mcg PO ACBREAKFAST 04/02/19 [History] Vit with Ca/FA/Iron [ Plus Iron] 1 each PO DAILY tablet 04/06/19 [Rx] Potassium Chloride 30 ml PO BID 02/19/21 [History] - CURRENT (IN HOUSE) MEDS Current Meds: Current Medications Calcium Carbonate/Glycine (Calcium Carbonate 500 Mg Tab.Chew) 1,000 mg PO Q2H PRN PRN Reason: Indigestion Diphenhydramine HCl (Diphenhydramine 50 Mg/Ml Sdv) 25 mg IVPUSH Q6H PRN PRN Reason: pruritis Ephedrine Sulfate (Ephedrine 50 Mg/Ml Sdv) 5 mg IVPUSH ASDIRECTED PRN PRN Reason: Hypotension Famotidine (Famotidine 20 Mg Tab) 20 mg PO Q12H PRN PRN Reason: Heartburn Fentanyl (Fentanyl 100 Mcg/2 Ml Sdv) 100 mcg EPIDUR Q3H PRN PRN Reason: Pain Last Admin: 02/19/21 11:07 Dose: 100 mcg Documented by: Fentanyl/Bupivacaine HCl (Bupivacaine/Fentanyl/Ns 100 Ml Bag) 100 ml EPIDUR ASDIRECTED PRN PRN Reason: Pain Last Admin: 02/19/21 11:07 Dose: 100 ml Documented by: Oxytocin/Lactated Ringer's (Pitocin In Lr 10 Units/1,000 Ml) 10 unit in 1,000 mls @ 12 mls/hr IV TITRATE ISELA; Protocol Last Titration: 02/19/21 10:00 Dose: 8 munits/min, 48 mls/hr Documented by: Oxytocin/Lactated Ringer's (Pitocin In Lr 10 Units/1,000 Ml) 10 unit in 1,000 mls @ 500 mls/hr IV .CONTINUOUS ISELA Lactated Ringer's (Ringers, Lactated) 1,000 mls @ 100 mls/hr IV ASDIRECTED ISELA Last Admin: 02/19/21 10:55 Dose: 100 mls/hr Documented by: Levothyroxine Sodium (Levothyroxine 50 Mcg Tab) 50 mcg PO ACBREAKFAST ISELA Last Admin: 02/19/21 09:10 Dose: 50 mcg Documented by: Nalbuphine HCl (Nalbuphine 10 Mg/1 Ml Vial) 10 mg IVPUSH Q2H PRN PRN Reason: Pain Ondansetron HCl (Ondansetron 4 Mg/2 Ml Sdv) 4 mg IVPUSH Q4H PRN PRN Reason: Nausea/Vomiting Sodium Chloride (Sodium Chloride 0.9% 10 Ml Syringe) 10 ml FLUSH ASDIRECTED PRN PRN Reason: Keep Vein Open Discontinued Medications Levothyroxine Sodium (Levothyroxine 50 Mcg Tab) 50 mcg PO ACBREAKFAST [facility] Lidocaine HCl (Lidocaine 1% 50 Ml Mdv) 50 ml INJECT ONETIME ONE Stop: 02/19/21 07:46
[2021-02-19] MEDS ORDERED: Bupivacaine 0.25% 10 ML SDV ONE (13:00)
--- NOTE | 2021-02-19 14:11 | PCM.DEL ---
L & D Note - General Info Date of Service: 02/19/21 Mother's Due Date: 02/16/21 - Delivery Note Labor: Induced by Oxytocin Delivery Outcome: Livebirth Delivery Method: Spontaneous Vaginal Delivery-Single Infant Delivery Mode: Spontaneous Presentation: Left Occiput Anterior (MICHAEL) Nuchal Cord: None Prep: Povidone-Iodine (Betadine Anesthesia Type: Epidural Amniotic Fluid Description: Meconium Stained Episiotomy Type: None Laceration: 1st Degree Suture type: Vicryl Suture size: 3-0 Placenta: Intact, Spontaneous Cord: 3 Vessels Estimated Blood Loss: 100 Resuscitation Needed: No [place]: Suctioned, Bulb Syringe, Stimulated, Warmed, [place] Used Provider: Kasandra Garzon Score 1 min: 8 Score 5 min: 9 Delivery Comments (Free Text/Narrative):: 30 yo at 40+3 weeks gestation admitted for elective induction due to term . She has not been feeling any contractions, but we are noticing a few on the strip this am. She has a history of hypothyroidism and on is levothyroxine 50 mcg daily and also hypokalemia and has been taking 80mEq KCL daily. She has a really hard time swallowing pills, so has been taking either the liquid KCl or the tabs that dissolve in water. Initial labs revealed blood type A positive with negative antibody screen. She has good immunity to rubella and varicella. Infectious disease screens were negative including Hepatitis C antibody. She did do the Prequel test and is was normal with XX sex chromosomes, so female fetus. MSAFP test was low risk. 1 hour glucola was 116. Last TSH done 11/16/20 was 2.9. GBS test is negative. She has received Tdap and had flu shot in March 2020. Last was induced at 39 weeks for mild preeclampsia and she had a baby boy weighing 7 lb 3oz. Pitocin was increased to a max of 8 mu/min and she had SROM at 11:30 am. RN checked her at that time and reported mec stained fluid, 4-5 cm dilated. There were some variable and early decels noted for about 30 minutes after SROM, and then they resolved. Moderate variability. I came in and checked her just before 1300 and she was completely dilated, vertex, station +1. We had her labor down for a little longer since she was comfortable, not feeling contractions and monitor was category 1. The pitocin had been decreased at 1230 due to tachysystole, and then increased again to 6 mu/min when we wanted to start pushing because the contractions had spaced out. She pushed with one set of pushes and the vertex delivered from MICHAEL presentation, no nuchal cord. The shoulders and the rest of the baby delivered without difficulty. Time of delivery was 1318. Baby girl. She cried at the perineum. Mouth and nose were suctioned with bulb syringe and baby was dried and stimulated and placed on mother's abdomen. Once the cord stopped pulsating, it was clamped and cut and baby moved up to mother's chest and placed skin to skin. Apgars were 8 and 9 at 1 and 5 minutes respectively. weight was 7 lb 10 oz (3450 gm). Placenta delivered spontaneously at 1323. It was intact, 3 vessels in the cord. EBL 100 ml. There was a small first degree perineal laceration that was repaired with a running 3-0 Vicryl suture. Bimanual exam was done and expressed some blood clots and the uterus was firm. Both Mom and baby were left in the delivery room in stable condition. Baby latched and was nursing by 1355. Induction Criteria - Lou Score Lou Score Dilation: 3-4 cm Lou Score Effacement: 40-50% Lou Score Infant's Station: -1 ,0 Lou Score Consistency: Soft Lou Score Cervix Position: Posterior Lou Score Total: 7 - Induction Gestational Age >/= 39 wks: Yes Estimated Pelvis: Reports: Adequate Reassuring Monitoring Strip: Yes Absence of Tachy Systole: Yes - General Info Date of Service: 02/19/21 Admission Dx/Problem (Free Text): Patient Status Order with Admit Dx/Problem 02/19/21 07:45 Patient Status [ADT] Routine Admission Diagnosis/Problem Admission Diagnosis/Problem Functional Status: Reports: Pain Controlled - Review of Systems General: Reports: No Symptoms HEENT: Reports: No Symptoms Pulmonary: Reports: No Symptoms Cardiovascular: Reports: No Symptoms Gastrointestinal: Reports: No Symptoms Genitourinary: Reports: No Symptoms Musculoskeletal: Reports: No Symptoms Skin: Reports: No Symptoms Neurological: Reports: No Symptoms Psychiatric: Reports: No Symptoms - Patient Data Vitals - Most Recent: Last Vital Signs Temp 36.8 C 02/19/21 07:15 Pulse 60 02/19/21 07:15 Resp 16 02/19/21 07:15 BP 145/75 H 02/19/21 07:15 Pulse Ox 100 02/19/21 07:15 Weight - Most Recent: 85.185 kg I&O - Last 24 Hours: Intake & Output 02/18/21 02/19/21 02/19/21 22:59 06:59 14:59 Intake Total 120 Balance 120 Lab Results Last 24 Hours: Laboratory Results - last 24 hr 02/19/21 02/19/21 02/19/21 Range/Units 07:45 08:10 08:10 WBC 8.98 (3.98-10.04) K/mm3 RBC 3.68 L (3.98-5.22) M/mm3 Hgb 10.7 L (11.2-15.7) gm/dl Hct 32.8 L (34.1-44.9) % MCV 89.1 D (79.4-94.8) fl MCH 29.1 (25.6-32.2) pg MCHC 32.6 (32.2-35.5) g/dl RDW Std Deviation 40.9 (36.4-46.3) fL Plt Count 226 (182-369) K/mm3 MPV 9.9 (9.4-12.3) fl Sodium 138 (136-145) mEq/L Potassium 3.4 L (3.5-5.1) mEq/L Chloride 105 (98-107) mEq/L Carbon Dioxide 21 (21-32) mEq/L Anion Gap 15.4 H (5-15) BUN 5 L (7-18) mg/dL Creatinine 0.6 (0.55-1.02) mg/dL Est Cr Clr Drug Dosing 129.51 mL/min Estimated GFR (MDRD) > 60 (>60) mL/min BUN/Creatinine Ratio 8.3 L (14-18) Glucose 81 (70-99) mg/dL Calcium 8.0 L (8.5-10.1) mg/dL SARS-CoV-2 RNA (JASWINDER) Negative (NEGATIVE) Blood Type Gel Antibody Screen 02/19/21 Range/Units 08:10 WBC (3.98-10.04) K/mm3 RBC (3.98-5.22) M/mm3 Hgb (11.2-15.7) gm/dl Hct (34.1-44.9) % MCV (79.4-94.8) fl MCH (25.6-32.2) pg MCHC (32.2-35.5) g/dl RDW Std Deviation (36.4-46.3) fL Plt Count (182-369) K/mm3 MPV (9.4-12.3) fl Sodium (136-145) mEq/L Potassium (3.5-5.1) mEq/L Chloride (98-107) mEq/L Carbon Dioxide (21-32) mEq/L Anion Gap (5-15) BUN (7-18) mg/dL Creatinine (0.55-1.02) mg/dL Est Cr Clr Drug Dosing mL/min Estimated GFR (MDRD) (>60) mL/min BUN/Creatinine Ratio (14-18) Glucose (70-99) mg/dL Calcium (8.5-10.1) mg/dL SARS-CoV-2 RNA (JASWINDER) (NEGATIVE) Blood Type A POSITIVE Gel Antibody Screen Negative Med Orders - Current: Current Medications Calcium Carbonate/Glycine (Calcium Carbonate 500 Mg Tab.Chew) 1,000 mg PO Q2H PRN PRN Reason: Indigestion Diphenhydramine HCl (Diphenhydramine 50 Mg/Ml Sdv) 25 mg IVPUSH Q6H PRN PRN Reason: pruritis Ephedrine Sulfate (Ephedrine 50 Mg/Ml Sdv) 5 mg IVPUSH ASDIRECTED PRN PRN Reason: Hypotension Famotidine (Famotidine 20 Mg Tab) 20 mg PO Q12H PRN PRN Reason: Heartburn Fentanyl (Fentanyl 100 Mcg/2 Ml Sdv) 100 mcg EPIDUR Q3H PRN PRN Reason: Pain Last Admin: 02/19/21 11:07 Dose: 100 mcg Documented by: Fentanyl/Bupivacaine HCl (Bupivacaine/Fentanyl/Ns 100 Ml Bag) 100 ml EPIDUR ASDIRECTED PRN PRN Reason: Pain Last Admin: 02/19/21 11:07 Dose: 100 ml Documented by: Oxytocin/Lactated Ringer's (Pitocin In Lr 10 Units/1,000 Ml) 10 unit in 1,000 mls @ 12 mls/hr IV TITRATE ISELA; Protocol Last Titration: 02/19/21 13:14 Dose: 6 munits/min, 36 mls/hr Documented by: Oxytocin/Lactated Ringer's (Pitocin In Lr 10 Units/1,000 Ml) 10 unit in 1,000 mls @ 500 mls/hr IV .CONTINUOUS ISELA Lactated Ringer's (Ringers, Lactated) 1,000 mls @ 100 mls/hr IV ASDIRECTED ISELA Last Admin: 02/19/21 10:55 Dose: 100 mls/hr Documented by: Levothyroxine Sodium (Levothyroxine 50 Mcg Tab) 50 mcg PO ACBREAKFAST ISELA Last Admin: 02/19/21 09:10 Dose: 50 mcg Documented by: Nalbuphine HCl (Nalbuphine 10 Mg/1 Ml Vial) 10 mg IVPUSH Q2H PRN PRN Reason: Pain Ondansetron HCl (Ondansetron 4 Mg/2 Ml Sdv) 4 mg IVPUSH Q4H PRN PRN Reason: Nausea/Vomiting Sodium Chloride (Sodium Chloride 0.9% 10 Ml Syringe) 10 ml FLUSH ASDIRECTED PRN PRN Reason: Keep Vein Open Discontinued Medications Levothyroxine Sodium (Levothyroxine 50 Mcg Tab) 50 mcg PO ACBREAKFAST [facility] Lidocaine HCl (Lidocaine 1% 50 Ml Mdv) 50 ml INJECT ONETIME ONE Stop: 02/19/21 07:46 - Exam Urinary Catheter Total Time: 0Days 0Hours General: Alert, Oriented HEENT: Pupils Equal Lungs: Normal Respiratory Effort Cardiovascular: Regular Rate, Regular Rhythm (Female) Exam: Vaginal Bleeding, Other (fundus firm, light vaginal bleeding. first degree perineal laceration) Back Exam: Normal Inspection Extremities: Normal Inspection, Normal Range of Motion, No Pedal Edema Skin: Warm, Dry, Intact Neurological: No New Focal Deficit Psy/Mental Status: Alert, Normal Affect, Normal Mood - Problem List & Annotations (1) 40 weeks gestation of SNOMED Code(s): 39865561 Code(s): Z3A.40 - 40 WEEKS GESTATION OF Status: Acute Current Visit: Yes (2) Hypokalemia SNOMED Code(s): 00030164 Code(s): E87.6 - HYPOKALEMIA Status: Acute Current Visit: No (3) Hypothyroidism SNOMED Code(s): 85178409 Code(s): E03.9 - HYPOTHYROIDISM, UNSPECIFIED Status: Acute Current Visit: No Qualifiers: Hypothyroidism type: acquired Qualified Code(s): E03.9 - Hypothyroidism, unspecified (4) Encounter for elective induction of labor SNOMED Code(s): 917924133 Code(s): Z34.90 - ENCNTR FOR SUPRVSN OF NORMAL , UNSP, UNSP TRIMESTER Status: Acute Current Visit: Yes (5) Normal spontaneous vaginal delivery SNOMED Code(s): 72474032, 787786606 Code(s): O80 - ENCOUNTER FOR FULL-TERM UNCOMPLICATED DELIVERY Status: Acute Current Visit: No (6) Breast feeding status of mother SNOMED Code(s): 058290989 Code(s): Z39.1 - ENCOUNTER FOR CARE AND EXAMINATION OF LACTATING MOTHER Status: Acute Current Visit: Yes - Problem List Review Problem List Initiated/Reviewed/Updated: Yes - My Orders Last 24 Hours: My Active Orders 02/19/21 06:00 Levothyroxine [Synthroid] 50 mcg PO ACBREAKFAST 02/19/21 Breakfast Regular Diet [DIET] 02/19/21 07:45 Patient Status [ADT] Routine Activity as Tolerated [RC] PFP Communication Order [RC] ASDIRECTED Notify Provider [RC] PFP Notify Provider [RC] PRN Vital Signs [RC] 03,,15,21 Calcium Carbonate [Tums] 1,000 mg PO Q2H PRN Famotidine [Pepcid] 20 mg PO Q12H PRN Lactated Ringers [Ringers, Lactated] 1,000 ml IV ASDIRECTED Nalbuphine [Nubain] 10 mg IVPUSH Q2H PRN Ondansetron [Zofran] 4 mg IVPUSH Q4H PRN Oxytocin/Lactated Ringers [Pitocin in LR 10 Units/1,000 ML] 10 unit in 1,000 ml IV .CONTINUOUS Oxytocin/Lactated Ringers [Pitocin in LR 10 Units/1,000 ML] 10 unit in 1,000 ml IV TITRATE Sodium Chloride 0.9% [Saline Flush] 10 ml FLUSH ASDIRECTED PRN Electronic Heart Tones Ext w TOCO [WOMSER] Routine Electronic Heart Tones Internal [WOMSER] Per Unit Routine Peripheral IV Insertion Adult [OM.PC] Routine Telemetry Monitoring [WOMSER] Routine Resuscitation Status Routine 02/19/21 07:46 Heart Tones [RC] ASDIRECTED Peripheral IV Care [RC] . DIRECTED 02/19/21 07:47 Intake and Output [RC] QSHIFT 02/19/21 08:10 RAPID PLASMA REAGIN,RPR [CHEM] Routine 02/19/21 13:44 Patient Status Manage Transfer [TRANSFER] Routine - Assessment Assessment:: at 40+3 weeks gestation. First degree perineal tear repaired Hypothyroidism Hypokalemia - Plan Plan:: Plan:1. - routine care 2. - skin to skin as much as possible. Breastfeed on demand. Support and encouragement. 3. Hypothyroidism - continue current dose of levothyroxine. 4. Hypokalemia - will check BMP and continue KCl supplement, 40mEq bid.
[2021-02-19] MEDS ORDERED: Simethicone 80 MG Tab.Chew PO PRN (14:24)
[2021-02-19] MEDS ORDERED: Ibuprofen 800 MG Tab PO PRN (14:24)
[2021-02-19] MEDS ORDERED: Docusate Sodium 100 MG Cap PO PRN (14:24)
[2021-02-19] MEDS ORDERED: Benzocaine/Menthol 20%-0.5% Spray 56 GM Canister TOP PRN (14:24)
[2021-02-19] MEDS ORDERED: Acetaminophen 325 MG Tab PO PRN (14:24)
[2021-02-19] MEDS ORDERED: Witch Hazel Medicated Pads 40/Jar TOP PRN (14:24)
[2021-02-20] MEDS ORDERED: Levothyroxine 50 MCG Tab PO SCH (06:00)
[2021-02-20] MEDS: Levothyroxine 50 MCG Tab PO SCH (06:52)
[2021-02-20] MEDS ORDERED: Prenatal Multivitamin with Calcium/Folic Acid/Iron Tab PO SCH (09:00)
--- NOTE | 2021-02-20 12:57 | PCM.DCSUM1 ---
Discharge Summary - Hospital Course Free Text/Narrative:: 30 yo at 40+3 weeks gestation admitted for elective induction due to term . She has not been feeling any contractions, but we are noticing a few on the strip this am. She has a history of hypothyroidism and on is levothyroxine 50 mcg daily and also hypokalemia and has been taking 80mEq KCL daily. She has a really hard time swallowing pills, so has been taking either the liquid KCl or the tabs that dissolve in water. Initial labs revealed blood type A positive with negative antibody screen. She has good immunity to rubella and varicella. Infectious disease screens were negative including Hepatitis C antibody. She did do the Prequel test and is was normal with XX sex chromosomes, so female fetus. MSAFP test was low risk. 1 hour glucola was 116. Last TSH done 11/16/20 was 2.9. GBS test is negative. She has received Tdap and had flu shot in March 2020. Last was induced at 39 weeks for mild preeclampsia and she had a baby boy weighing 7 lb 3oz. Pitocin was increased to a max of 8 mu/min and she had SROM at 11:30 am. RN checked her at that time and reported mec stained fluid, 4-5 cm dilated. There were some variable and early decels noted for about 30 minutes after SROM, and then they resolved. Moderate variability. I came in and checked her just before 1300 and she was completely dilated, vertex, station +1. We had her labor down for a little longer since she was comfortable, not feeling contractions and monitor was category 1. The pitocin had been decreased at 1230 due to tachysystole, and then increased again to 6 mu/min when we wanted to start pushing because the contractions had spaced out. She pushed with one set of pushes and the vertex delivered from MICHAEL presentation, no nuchal cord. The shoulders and the rest of the baby delivered without difficulty. Time of alf kelley was 1318. Baby girl. She cried at the perineum. Mouth and nose were suctioned with bulb syringe and baby was dried and stimulated and placed on mother's abdomen. Once the cord stopped pulsating, it was clamped and cut and baby moved up to mother's chest and placed skin to skin. Apgars were 8 and 9 at 1 and 5 minutes respectively. weight was 7 lb 10 oz (3450 gm). Placenta delivered spontaneously at 1323. It was intact, 3 vessels in the cord. EBL 100 ml. There was a small first degree perineal laceration that was repaired with a running 3-0 Vicryl suture. Bimanual exam was done and expressed some blood clots and the uterus was firm. Both Mom and baby were left in the delivery room in stable condition. Baby latched and was nursing by 1355. She has been doing well . is going well and denies nipple pain. Bleeding is slowing and denies clots or much cramping. She has not needed to take anything for pain. Denies headache or pain at epidural site. Denies leg swelling. Appetite is good. Mood is good and EPDS score today is 0. Diagnosis: Stroke: No Modified [place] Scale: No Symptoms at All Modified Anastasia Scale Score: 0 - Discharge Data Discharge Date: 02/20/21 Discharge Disposition: Home, Self-Care 01 Condition: Good - Referral to Home Health Primary Care Physician: Kasandra Garzon MD - Discharge Diagnosis/Problem(s) (1) 40 weeks gestation of SNOMED Code(s): 64391706 ICD Code: Z3A.40 - 40 WEEKS GESTATION OF Status: Acute Current Visit: Yes (2) Hypokalemia SNOMED Code(s): 81544489 ICD Code: E87.6 - HYPOKALEMIA Status: Acute Current Visit: No (3) Hypothyroidism SNOMED Code(s): 97535925 ICD Code: E03.9 - HYPOTHYROIDISM, UNSPECIFIED Status: Acute Current Visit: No Qualifiers: Hypothyroidism type: acquired Qualified Code(s): E03.9 - Hypothyroidism, unspecified (4) Encounter for elective induction of labor SNOMED Code(s): 220655288 ICD Code: Z34.90 - ENCNTR FOR SUPRVSN OF NORMAL , UNSP, UNSP TRIMESTER Status: Resolved Current Visit: Yes (5) Normal spontaneous vaginal delivery SNOMED Code(s): 23132360, 968447966 ICD Code: O80 - ENCOUNTER FOR FULL-TERM UNCOMPLICATED DELIVERY Status: Acute Current Visit: No (6) Breast feeding status of mother SNOMED Code(s): 530184853 ICD Code: Z39.1 - ENCOUNTER FOR CARE AND EXAMINATION OF LACTATING MOTHER Status: Acute Current Visit: Yes - Patient Instructions Diet: Regular Diet as Tolerated, Drink 8-10+ Glasses/Day Activity: As Tolerated Driving: May Drive Today Showering/Bathing: May Shower Notify Provider of: Fever, Increased Pain, Swelling and Redness, Drainage, Nausea and/or Vomiting - Discharge Plan *PRESCRIPTION DRUG MONITORING PROGRAM REVIEWED*: No *COPY OF PRESCRIPTION DRUG MONITORING REPORT IN PATIENT MYNOR: No Home Medications: Home Meds Levothyroxine [Synthroid] 50 mcg PO ACBREAKFAST 04/02/19 [History] Vit with Ca/FA/Iron [ Plus Iron] 1 each PO DAILY tablet 04/06/19 [Rx] Potassium Chloride 30 ml PO BID 02/19/21 [History] Acetaminophen [Tylenol] 650 mg PO Q4H PRN tablet 02/20/21 [Rx] Benzocaine/Menthol [Dermoplast Pain Relief Castell] 1 applic TOP ASDIRECTED PRN canister 02/20/21 [Rx] Docusate Sodium [Colace] 100 mg PO BID PRN cap 02/20/21 [Rx] Ibuprofen [Motrin] 800 mg PO Q8H PRN tablet 02/20/21 [Rx] witch Mercedez [Tucks] 1 pad TOP ASDIRECTED PRN pad 02/20/21 [Rx] Oxygen Therapy Mode: Room Air - Discharge Summary/Plan Comment DC Time >30 min.: No Total # of Minutes for Discharge Time: 20 Discharge Summary/Plan Comment: 30 yo at 40+3 weeks gestation admitted for elective induction due to term . She has not been feeling any contractions, but we are noticing a few on the strip this am. She has a history of hypothyroidism and on is levothyroxine 50 mcg daily and also hypokalemia and has been taking 80mEq KCL daily. She has a really hard time swallowing pills, so has been taking either the liquid KCl or the tabs that dissolve in water. Initial labs revealed blood type A positive with negative antibody screen. She has good immunity to rubella and varicella. Infectious disease screens were negative including Hepatitis C antibody. She did do the Prequel test and is was normal with XX sex chromosomes, so female fetus. MSAFP test was low risk. 1 hour glucola was 116. Last TSH done 11/16/20 was 2.9. GBS test is negative. She has received Tdap and had flu shot in March 2020. Last was induced at 39 weeks for mild preeclampsia and she had a baby boy weighing 7 lb 3oz. Pitocin was increased to a max of 8 mu/min and she had SROM at 11:30 am. RN checked her at that time and reported mec stained fluid, 4-5 cm dilated. There were some variable and early decels noted for about 30 minutes after SROM, and then they resolved. Moderate variability. I came in and checked her just bef ore 1300 and she was completely dilated, vertex, station +1. We had her labor down for a little longer since she was comfortable, not feeling contractions and monitor was category 1. The pitocin had been decreased at 1230 due to tachysystole, and then increased again to 6 mu/min when we wanted to start pushing because the contractions had spaced out. She pushed with one set of pushes and the vertex delivered from MICHAEL presentation, no nuchal cord. The shoulders and the rest of the baby delivered without difficulty. Time of delivery was 1318. Baby girl. She cried at the perineum. Mouth and nose were suctioned with bulb syringe and baby was dried and stimulated and placed on mother's abdomen. Once the cord stopped pulsating, it was clamped and cut and baby moved up to mother's chest and placed skin to skin. Apgars were 8 and 9 at 1 and 5 minutes respectively. weight was 7 lb 10 oz (3450 gm). Placenta delivered spontaneously at 1323. It was intact, 3 vessels in the cord. EBL 100 ml. There was a small first degree perineal laceration that was repaired with a running 3-0 Vicryl suture. Bimanual exam was done and expressed some blood clots and the uterus was firm. Both Mom and baby were left in the delivery room in stable condition. Baby latched and was nursing by 1355. She has done well . She is exclusively and has been nursing about every 2-3 hours without nipple pain. Not needing to take anything for cramping, bleeding is slowing. Appetite is normal. Epidural site is without pain or bruising. EPDS score is 0 A/P: 1. following - doing well, continue routine instructions. Ibuprofen or tylenol and needed for discomfort. She had a first degree perineal laceration that required a few stitches. Avoid intercourse for 6 weeks and follow up in the clinic in 6 weeks. EPDS is 0, monitor for signs of PP depression. 2. - doing well, continue to breastfeed on demand. Continue PNV daily 3. Hypothyroidism - continue current 50 mcg dose of levothyroxine daily and will check labs before 6 week visit. 4. Hypokalemia - continue KCL supplement and will check BMP before visit. K+ on admission was 3.4. - General Info Date of Service: 02/20/21 Admission Dx/Problem (Free Text: Patient Status Order with Admit Dx/Problem 02/19/21 07:45 Patient Status [ADT] Routine Admission Diagnosis/Problem Admission Diagnosis/Problem Functional Status: Reports: Pain Controlled, Tolerating Diet, Ambulating, Urinating - Review of Systems General: Reports: No Symptoms HEENT: Reports: No Symptoms Pulmonary: Reports: No Symptoms Cardiovascular: Reports: No Symptoms Gastrointestinal: Reports: No Symptoms Genitourinary: Reports: No Symptoms Musculoskeletal: Reports: No Symptoms Skin: Reports: No Symptoms Neurological: Reports: No Symptoms Psychiatric: Reports: No Symptoms - Patient Data Vitals - Most Recent: Last Vital Signs Temp 36.8 C 02/20/21 08:48 Pulse 46 L 02/20/21 08:48 Resp 14 02/20/21 08:48 BP 135/67 02/20/21 08:48 Pulse Ox 99 02/20/21 08:48 Weight - Most Recent: 85.185 kg I&O - Last 24 hours: Intake & Output 02/19/21 02/20/21 02/20/21 22:59 06:59 14:59 Intake Total 2600 Output Total 190 Balance 2410 Lab Results - Last 24 hrs: Laboratory Results - last 24 hr 02/19/21 02/20/21 Range/Units 08:10 09:15 WBC 10.96 H (3.98-10.04) K/mm3 RBC 3.54 L (3.98-5.22) M/mm3 Hgb 10.3 L (11.2-15.7) gm/dl Hct 32.0 L (34.1-44.9) % MCV 90.4 (79.4-94.8) fl MCH 29.1 (25.6-32.2) pg MCHC 32.2 (32.2-35.5) g/dl RDW Std Deviation 41.9 (36.4-46.3) fL Plt Count 208 (182-369) K/mm3 MPV 9.8 (9.4-12.3) fl RPR Non-reactive (NONREACTIVE) Med Orders - Current: Current Medications Acetaminophen (Acetaminophen 325 Mg Tab) 650 mg PO Q4H PRN PRN Reason: mild pain or fever Benzocaine/Menthol (Benzocaine/Menthol 20%-0.5% Castell 56 Gm Canister) 0 gm TOP ASDIRECTED PRN PRN Reason: Perineal Comfort Measure Last Admin: 02/19/21 15:14 Dose: 1 can Documented by: Docusate Sodium (Docusate Sodium 100 Mg Cap) 100 mg PO BID PRN PRN Reason: Constipation Ibuprofen (Ibuprofen 800 Mg Tab) 800 mg PO Q8H PRN PRN Reason: Mild pain or fever Levothyroxine Sodium (Levothyroxine 50 Mcg Tab) 50 mcg PO ACBREAKFAST [facility] Last Admin: 02/20/21 06:52 Dose: 50 mcg Documented by: Prenat Multivit/Mingo/Iron/Folic Ac ( Multivitamin With Calcium/Folic Acid/Iron Tab) 1 each PO DAILY [facility] Last Admin: 02/20/21 09:36 Dose: Not Given Documented by: Simethicone (Simethicone 80 Mg Tab.Chew) 80 mg PO Q4H PRN PRN Reason: Gas Witch Mercedez (Witch Mercedez Medicated Pads 40/Jar) 1 pad TOP ASDIRECTED PRN PRN Reason: Perineal Comfort Measure Last Admin: 02/19/21 15:14 Dose: 1 tub Documented by: Discontinued Medications Calcium Carbonate/Glycine (Calcium Carbonate 500 Mg Tab.Chew) 1,000 mg PO Q2H PRN PRN Reason: Indigestion Diphenhydramine HCl (Diphenhydramine 50 Mg/Ml Sdv) 25 mg IVPUSH Q6H PRN PRN Reason: pruritis Ephedrine Sulfate (Ephedrine 50 Mg/Ml Sdv) 5 mg IVPUSH ASDIRECTED PRN PRN Reason: Hypotension Famotidine (Famotidine 20 Mg Tab) 20 mg PO Q12H PRN PRN Reason: Heartburn Fentanyl (Fentanyl 100 Mcg/2 Ml Sdv) 100 mcg EPIDUR Q3H PRN PRN Reason: Pain Last Admin: 02/19/21 11:07 Dose: 100 mcg Documented by: Fentanyl/Bupivacaine HCl (Bupivacaine/Fentanyl/Ns 100 Ml Bag) 100 ml EPIDUR ASDIRECTED PRN PRN Reason: Pain Last Admin: 02/19/21 11:07 Dose: 100 ml Documented by: Oxytocin/Lactated Ringer's (Pitocin In Lr 10 Units/1,000 Ml) 10 unit in 1,000 mls @ 12 mls/hr IV TITRATE ISELA; Protocol Last Titration: 02/19/21 13:14 Dose: 6 munits/min, 36 mls/hr Documented by: Oxytocin/Lactated Ringer's (Pitocin In Lr 10 Units/1,000 Ml) 10 unit in 1,000 mls @ 500 mls/hr IV .CONTINUOUS ISELA Lactated Ringer's (Ringers, Lactated) 1,000 mls @ 100 mls/hr IV ASDIRECTED ISELA Last Admin: 02/19/21 10:55 Dose: 100 mls/hr Documented by: Levothyroxine Sodium (Levothyroxine 50 Mcg Tab) 50 mcg PO ACBREAKFAST ISELA Lidocaine HCl (Lidocaine 1% 50 Ml Mdv) 50 ml INJECT ONETIME ONE Stop: 02/19/21 07:46 Last Admin: 02/19/21 18:10 Dose: Not Given Documented by: Nalbuphine HCl (Nalbuphine 10 Mg/1 Ml Vial) 10 mg IVPUSH Q2H PRN PRN Reason: Pain Ondansetron HCl (Ondansetron 4 Mg/2 Ml Sdv) 4 mg IVPUSH Q4H PRN PRN Reason: Nausea/Vomiting Sodium Chloride (Sodium Chloride 0.9% 10 Ml Syringe) 10 ml FLUSH ASDIRECTED PRN PRN Reason: Keep Vein Open - Exam General: Reports: Alert, Oriented HEENT: Reports: Pupils Equal, Mucous Membr. Moist/[place] Neck: Reports: Supple Lungs: Reports: Normal Respiratory Effort Cardiovascular: Reports: Regular Rate, Regular Rhythm GI/Abdominal Exam: Normal Bowel Sounds, Soft, No Distention (Female) Exam: Normal External Exam, Vaginal Bleeding, Other (Fundus 2 fingers below umbilicus) Rectal (Female) Exam: Deferred Back Exam: Reports: Normal Inspection (No bruising at epidural site), Full Range of Motion Extremities: Normal Inspection, Normal Range of Motion, No Pedal Edema, Normal Capillary Refill Skin: Reports: Warm, Dry, Intact Neurological: Reports: No New Focal Deficit Psy/Mental Status: Reports: Alert, Normal Affect, Normal Mood
== END 2021-02-20 13:55 | disposition home or self-care (01) | DRG 560 ==
LOC: JD.OB 07:01 → OBSVTOIN 07:01 → JD.OB 13:18
PROVIDERS: ADMIT Family Medicine; ATTEND Family Medicine
PROC: 10E0XZZ Delivery of Products of Conception, External Approach (ICD-10-PCS; principal; 2021-02-19)
PROC: 3E033VJ Introduction of Other Hormone into Peripheral Vein, Percutaneous Approach (ICD-10-PCS; 2021-02-19)
PROC: 3E0R3BZ Introduction of Anesthetic Agent into Spinal Canal, Percutaneous Approach (ICD-10-PCS; 2021-02-19)
PROC: 0HQ9XZZ Repair Perineum Skin, External Approach (ICD-10-PCS; 2021-02-19)
PROC: 10907ZC Drainage of Amniotic Fluid, Therapeutic from Products of Conception, Via Natural or Artificial Opening (ICD-10-PCS; 2021-02-19)
DX: O48.0 Post-term pregnancy (principal); Z3A.40 40 weeks gestation of pregnancy; Z37.0 Single live birth; O99.284 Endocrine, nutritional and metabolic diseases complicating childbirth; E03.9 Hypothyroidism, unspecified; E87.6 Hypokalemia; O77.0 Labor and delivery complicated by meconium in amniotic fluid; O76 Abnormality in fetal heart rate and rhythm complicating labor and delivery; O70.0 First degree perineal laceration during delivery; Z88.0 Allergy status to penicillin; Z91.013 Allergy to seafood; Z79.890 Hormone replacement therapy; Z20.822 Contact with and (suspected) exposure to COVID-19
CPT/HCPCS: 01967; 36415; 51701; 51702; 59025; 59409; 80048; 85027; 86592; 86850; 86900; 86901; A9270-GY; J2590; J3010; J3490; J7120; U0002

== ENCOUNTER 2023-02-23 01:18 | Inpatient (IN) | payer BC ==
[~2023-02-23 01:18] MED LIST: Bupivacaine 0.25% 10 ML SDV ONE
[2023-02-23] MEDS ORDERED: Lidocaine 1% 50 ML MDV INJECT PRN (01:45)
[2023-02-23] MEDS ORDERED: Oxytocin/Lactated Ringers 10 UNIT/1,000 ML BAG IV SCH ×2 (01:45→04:47)
[2023-02-23] MEDS ORDERED: Nalbuphine 10 MG/0.5 ML Syringe IVPUSH PRN (01:45)
[2023-02-23 02:06] LABS: BASOPHILS PERCENT AUTO 0.2 % (0.0-1.0); EOSINOPHILS ABSOLUTE AUTO 0.1 K/mm3 (0.0-0.4); EOSINOPHILS PERCENT AUTO 0.8 % (0.0-6.0); HEMATOCRIT 32.7 % (37.0-47.0); HEMOGLOBIN 11.3 gm/dl (12.0-16.0); IMMATURE GRAN PERCENT AUTO 0.8 % (0.0-0.4); LYMPHOCYTES ABSOLUTE AUTO 2.3 K/mm3 (1.0-4.8); LYMPHOCYTES PERCENT AUTO 18.2 % (24.0-44.0); MEAN CORPUSCULAR HEMOGLOBIN 30.7 pg (28.0-32.0); MEAN CORPUSCULAR HGB CONC 34.6 g/dl (32.0-36.0); MEAN CORPUSCULAR VOLUME 88.9 fl (83.0-99.0); MEAN PLATELET VOLUME 10.7 fl (9.4-12.3); MONOCYTES ABSOLUTE AUTO 0.7 K/mm3 (0.0-0.8); MONOCYTES PERCENT AUTO 5.9 % (0.0-8.0); NEUTROPHILS ABSOLUTE AUTO 9.3 K/mm3 (1.8-7.7); NEUTROPHILS PERCENT AUTO 74.1 % (41.0-71.0); PLATELET COUNT,PLT 160 K/mm3 (150-400); RED BLOOD CELL COUNT 3.68 M/mm3 (4.10-5.30); WHITE BLOOD CELL COUNT,WBC 12.56 K/mm3 (3.9-11.3)
[2023-02-23] MEDS: Lactated Ringers 1,000 ML IV SCH ×4 (02:06→04:50)
[2023-02-23] MEDS ORDERED: Bupivacaine/fentaNYL/NS 100 ML Bag EPIDUR PRN (02:20)
[2023-02-23] MEDS ORDERED: ePHEDrine 50 MG/ML SDV IVPUSH PRN (02:20)
[2023-02-23] MEDS ORDERED: diphenhydrAMINE 50 MG/ML SDV IVPUSH PRN (02:20)
[2023-02-23] MEDS ORDERED: fentaNYL 100 MCG/2 ML SDV EPIDUR PRN (02:20)
[2023-02-23 02:23] LABS: ANION GAP 17.3 (5-15); BUN/CREATININE RATIO 13.3 (14-18); CALCIUM 8.9 mg/dL (8.5-10.1); CREATININE 0.6 mg/dL (0.55-1.02); EST CRCL DRUG DOSING (CG) 127.18 mL/min; POTASSIUM,K 3.3 mEq/L (3.5-5.1)
[2023-02-23] MEDS ORDERED: Famotidine 20 MG Tab PO PRN (06:55)
[2023-02-23] MEDS ORDERED: Ibuprofen 600 MG Tab PO PRN (06:55)
[2023-02-23] MEDS ORDERED: Acetaminophen 325 MG Tab PO PRN (06:55)
[2023-02-23] MEDS ORDERED: Witch Hazel Medicated Pads 40/Jar TOP PRN (06:55)
[2023-02-23] MEDS ORDERED: Docusate Sodium 100 MG Cap PO PRN (06:55)
[2023-02-23] MEDS ORDERED: Benzocaine/Menthol 20%-0.5% Spray 78 GM Cannister TOP PRN (06:55)
[2023-02-23] MEDS: Levothyroxine 75 MCG Tab PO SCH (07:17)
[2023-02-23] MEDS: Prenatal Multivitamin with Calcium/Folic Acid/Iron Tab PO SCH (09:00)
[2023-02-23] MEDS ORDERED: Ondansetron 4 MG/2 ML SDV IVPUSH PRN ×2 (09:10→09:30)
[2023-02-24] MEDS: Levothyroxine 75 MCG Tab PO SCH (06:07)
[2023-02-24] MEDS: Prenatal Multivitamin with Calcium/Folic Acid/Iron Tab PO SCH (10:40)
== END 2023-02-24 12:35 | disposition home or self-care (01) | DRG 560 ==
LOC: JD.OBCHECK 01:18 → JD.OB 01:29 → OBSVTOIN 06:04 → JD.OB 06:28
PROVIDERS: ADMIT Family Medicine; ATTEND Obstetrics & Gynecology
PROC: 10E0XZZ Delivery of Products of Conception, External Approach (ICD-10-PCS; principal; 2023-02-23)
PROC: 10907ZC Drainage of Amniotic Fluid, Therapeutic from Products of Conception, Via Natural or Artificial Opening (ICD-10-PCS; 2023-02-23)
PROC: 0HQ9XZZ Repair Perineum Skin, External Approach (ICD-10-PCS; 2023-02-23)
PROC: 3E0R3BZ Introduction of Anesthetic Agent into Spinal Canal, Percutaneous Approach (ICD-10-PCS; 2023-02-23)
PROC: 00HU33Z Insertion of Infusion Device into Spinal Canal, Percutaneous Approach (ICD-10-PCS; 2023-02-23)
DX: O99.284 Endocrine, nutritional and metabolic diseases complicating childbirth (principal); E03.9 Hypothyroidism, unspecified; E87.6 Hypokalemia; O48.0 Post-term pregnancy; O70.0 First degree perineal laceration during delivery; O99.354 Diseases of the nervous system complicating childbirth; G43.909 Migraine, unspecified, not intractable, without status migrainosus; Z3A.40 40 weeks gestation of pregnancy; Z37.0 Single live birth; Z79.899 Other long term (current) drug therapy; Z79.82 Long term (current) use of aspirin; Z79.890 Hormone replacement therapy
CPT/HCPCS: 36415; 51702; 59025; 59409; 80048; 85025; 86592; A9270-GY; J2405; J2590; J3010; J3490; J7120

== ENCOUNTER 2024-12-27 07:11 | Inpatient (IN) | payer BC ==
[2024-12-27] MEDS ORDERED: Ondansetron 4 MG/2 ML SDV IVPUSH PRN (07:25)
[2024-12-27] MEDS ORDERED: Nalbuphine 10 MG/1 ML Vial IVPUSH PRN (07:25)
[2024-12-27] MEDS ORDERED: Sodium Chloride 0.9% 10 ML Syringe FLUSH PRN (07:25)
[2024-12-27] MEDS ORDERED: Oxytocin/0.9 % Sodium Chloride 30 UNIT/500 ML BAG IV SCH (07:30)
[2024-12-27 07:46] LABS: BASOPHILS ABSOLUTE AUTO 0.0 K/mm3 (0.0-0.2); EOSINOPHILS ABSOLUTE AUTO 0.1 K/mm3 (0.0-0.4); NRBC ABSOLUTE 0.00 (0.00-0.02); NRBC PERCENT 0.0 % (0.0-0.2)
[2024-12-27] MEDS: Misoprostol 25 MCG (1/4 of 100 MCG) Tab VAG PRN (08:20)
[2024-12-27 09:34] LABS: RED BLOOD CELL COUNT 3.70 M/mm3 (4.10-5.30); WHITE BLOOD CELL COUNT,WBC 7.61 K/mm3 (3.9-11.3)
[2024-12-27 09:35] LABS: MEAN PLATELET VOLUME 11.1 fl (9.4-12.3); PLATELET COUNT,PLT 117 K/mm3 (150-400)
[2024-12-27 09:36] LABS: LYMPHOCYTES PERCENT AUTO 24.8 % (24.0-44.0); MONOCYTES PERCENT AUTO 4.3 % (0.0-8.0); NEUTROPHILS PERCENT AUTO 68.8 % (41.0-71.0)
[2024-12-27 09:37] LABS: BASOPHILS PERCENT AUTO 0.1 % (0.0-1.0); EOSINOPHILS PERCENT AUTO 1.2 % (0.0-6.0); IMMATURE GRAN PERCENT AUTO 0.8 % (0.0-0.4); LYMPHOCYTES ABSOLUTE AUTO 1.9 K/mm3 (1.0-4.8); NEUTROPHILS ABSOLUTE AUTO 5.2 K/mm3 (1.8-7.7)
[2024-12-27 09:38] LABS: IMMATURE GRAN ABSOLUTE AUTO 0.06 K/mm3 (0.00-0.05); MONOCYTES ABSOLUTE AUTO 0.3 K/mm3 (0.0-0.8)
[2024-12-27] MEDS: Lactated Ringers 1,000 ML IV SCH (14:15)
[2024-12-27] MEDS ORDERED: ePHEDrine 50 MG/ML SDV IVPUSH PRN (14:18)
[2024-12-27] MEDS ORDERED: diphenhydrAMINE 50 MG/ML SDV IVPUSH PRN (14:18)
[2024-12-27] MEDS: fentaNYL 100 MCG/2 ML SDV EPIDUR PRN (14:27)
[2024-12-27] MEDS: Bupivacaine/fentaNYL/NS 100 ML Bag EPIDUR PRN (14:27)
[2024-12-27] MEDS: Oxytocin/0.9 % Sodium Chloride 30 UNIT/500 ML BAG IV SCH (17:14)
[2024-12-27] MEDS ORDERED: Witch Hazel Medicated Pads 40/Jar TOP PRN (18:39)
[2024-12-27] MEDS ORDERED: Benzocaine/Menthol 20%-0.5% Spray 78 GM Cannister TOP PRN (18:39)
[2024-12-28 05:42] LABS: MEAN PLATELET VOLUME 10.6 fl (9.4-12.3); NRBC ABSOLUTE 0.00 (0.00-0.02); NRBC PERCENT 0.0 % (0.0-0.2); PLATELET COUNT,PLT 118 K/mm3 (150-400); RED BLOOD CELL COUNT 3.84 M/mm3 (4.10-5.30); WHITE BLOOD CELL COUNT,WBC 10.24 K/mm3 (3.9-11.3)
[2024-12-28 06:05] LABS: BLOOD UREA NITROGEN,BUN 8.0 mg/dL (7-18); CARBON DIOXIDE,CO2 25.0 mEq/L (21-32); CHLORIDE,CL 104.0 mEq/L (98-107); CREATININE 0.6 mg/dL (0.55-1.02); EST CRCL DRUG DOSING (CG) 124.85 mL/min; ESTIMATED GFR 121.0 mL/min (>60); GLUCOSE RANDOM 100.0 mg/dL (70-99); POTASSIUM,K 3.4 mEq/L (3.5-5.1); SODIUM,NA 136.0 mEq/L (136-145)
[2024-12-28] MEDS: Ibuprofen Susp 100 MG/5 ML 5 ML UD Cup PO SCH ×2 (08:31→08:32)
== END 2024-12-28 17:45 | disposition home or self-care (01) | DRG 560 ==
LOC: JD.OB 07:11 → OBSVTOIN 17:14 → JD.OB 17:52
PROVIDERS: ADMIT Family Medicine; ATTEND Family Medicine
PROC: 10E0XZZ Delivery of Products of Conception, External Approach (ICD-10-PCS; principal; 2024-12-27)
PROC: 10907ZC Drainage of Amniotic Fluid, Therapeutic from Products of Conception, Via Natural or Artificial Opening (ICD-10-PCS; 2024-12-27)
PROC: 10E0XZZ Delivery of Products of Conception, External Approach (ICD-10-PCS; 2024-12-27)
PROC: 0U7C7DJ Dilation of Cervix with Intraluminal Device, Temporary, Via Natural or Artificial Opening (ICD-10-PCS; 2024-12-27)
PROC: 3E0DXGC Introduction of Other Therapeutic Substance into Mouth and Pharynx, External Approach (ICD-10-PCS; 2024-12-27)
PROC: 4A1HXCZ Monitoring of Products of Conception, Cardiac Rate, External Approach (ICD-10-PCS; 2024-12-27)
PROC: 3E0R3BZ Introduction of Anesthetic Agent into Spinal Canal, Percutaneous Approach (ICD-10-PCS; 2024-12-27)
PROC: 00HU33Z Insertion of Infusion Device into Spinal Canal, Percutaneous Approach (ICD-10-PCS; 2024-12-27)
DX: O99.284 Endocrine, nutritional and metabolic diseases complicating childbirth (principal); E03.9 Hypothyroidism, unspecified; Z3A.39 39 weeks gestation of pregnancy; Z37.0 Single live birth; E87.6 Hypokalemia; O99.12 Other diseases of the blood and blood-forming organs and certain disorders involving the immune mechanism complicating childbirth; D69.6 Thrombocytopenia, unspecified; O35.EXX0 Maternal care for other (suspected) fetal abnormality and damage, fetal genitourinary anomalies, not applicable or unspecified; O69.81X0 Labor and delivery complicated by cord around neck, without compression, not applicable or unspecified
CPT/HCPCS: 36415; 51702; 59025; 59409; 80048; 85025; 85027; 86592; 86850; 86900; 86901; A9270-GY; C1726; J3010; J3490; J7120; J7999